=== PATIENT | male | born 1980 | race Caucasian/White ===

== ENCOUNTER 2024-05-12 07:09 | Emergency (ER) | payer OTHER, SELFPAY ==
[2024-05-12] VITALS (9 sets, daily range): BP systolic 108–151; BP diastolic 85–121; PULSE 51–64; RESP 11–21; TEMP 35.7; O2SAT 96–100
--- OUTSIDE RECORDS SUMMARY | 2024-05-12 07:12 | XMS_ITS | Data Portability ---
Author Organization [facility], [facility] Address [address] [place] [address] Care Team Providers Care Transport Rn Name Role Phone BOB HAMLIN Referring Provider Assessment Encounter Date Assessment Date Assessment LastModified by Organization Details LastModified Time 04/19/2023 04/19/2023 42 year old male with erectile dysfunction and benign prostatic hyperplasia with lower urinary tract symptoms Not available 04/19/2023 09:39:57 09/13/2023 09/13/2023 42 year old male with erectile dysfunction, hypogonadism, and benign prostatic hyperplasia with lower urinary tract symptoms Not available 09/13/2023 08:54:24 Plan of Treatment Reminders Order Date Submit Date Provider Last Modified By Organization Details Last Modified Time Details Appointments ESTABLISH ED 10 2024 07:30A M Zuhair Blackwood MD Not available Not available Not available Lab None recorded. Referral None recorded. Procedures None recorded. Surgeries None recorded. Imaging None recorded. Medication Orders Edex 20 mcg intracave rnosal kit [address], [address], 02/16/2024 14:03:32 testoster one 20.25 mg/1.25 gram per pump act.(1.62 %) transderm al gel 2023 024 [facility], [address] [place] [address], [address], 02/16/2024 13:19:48 Patient TargetsNo targets recorded. Patient Instructions Encounter Date Encounter Id Patient Instructions Last Modified By Organization Details Last Modified Time 04/19/2023 [id number] Erectile dysfunc tion: We had a long discussion regarding the etiologies of erectile dysfunction. In the vast majority of men, this is due to chronic insults of underlying vascular conditions such as diabetes, hypertension, and hyperlipidemia. In some men this may also be caused by iatrogenic causes such as pelvic surgery as in the case of radical prostatectomy. In some cases it may also be due to underlying neurologic insults. We discussed that there are some potentially reversible causes for erectile dysfunction such as hypogonadism and that it is recommended that we obtain two morning testosterone levels to assess if this may be the cause. We also discussed the impact of pharmaceuticals such as antihypertensive and glycemic agents on erectile function and that if possible, these should be modified to minimize impact on sexual function. We then discussed potential management strategies for erectile dysfunction. First we discussed vacuum assisted devices. These are a non-pharmacologic therapy which allows blood to be drawn into the penis using a pump and is then held in place with a ring at the base of the penis. Potential side effects can include bruising. Often this is insufficient for most men to maintain sufficient erections as mono therapy. We then discussed pharmacologic options. We discussed the use of phosphodiesterase inhibitors. We discussed this is often a first line therapy for men as it is discreet and can be utilized quickly on an as needed basis. We discussed that this is administered 30-60 minutes before intercourse on an empty stomach. We discussed side effects including flushing, vision changes (blue light vision), hypotension when combined with nitrates, and notably priapism. We discussed in the event of an erection lasting more than 4 hours this is an emergency and he must go to the nearest Emergency Department. We then discussed intracavernosal injection therapy. This involved injecting vasodilatory agents directly into the penis using a small needle. This may allow men to achieve erections when phosphodiesterase inhibitors are no longer effective. We discussed administration and potential side effects including bruising, hematoma formation, and risk of priapism. Finally we briefly discussed the role of surgery in the form of penile prosthesis placement. This may be an option for men who have failed to respond to other therapies. He has had limited response to oral therapies. We will check a morning testosterone to ensure he is not hypgonadic. If normal, we will try intracavernosal injections as a next step. Benign prostatic hyperplasia with lower urinary tract symptoms: Mild right now and he is not bothered enough to start medical therapy. We will monitor for now. Prostate cancer screening/Family history of prostate cancer His prostate specific antigen and exam are normal. [email or web address] Not available 04/19/2023 09:46:29 09/13/2023 [id number] Hypogonadism: His sexual function is somewhat better. We will check a repeat testosterone today to ensure he is above therapeutic range and adjust as needed. Erectile dysfunction: He will stick with tadalafil as needed for now but if he doesn't have adequate improvement once his testosterone is at goal he would like to try intracavernosal injections. Benign prostatic hyperplasia with lower urinary tract symptoms: Stable. Prostate cancer screening/Family history of prostate cancer His prostate specific antigen and exam are normal. Repeat in 1 year. Not available 09/13/2023 09:46:13 02/16/2024 [id number] 43 y/o male pres ents for a penile injection trial Educated on proper injection technique. Instructed to trial 20 mcg of Edex at home. Titrate up or down as tolerated and needed for desired response. Do not exceed 0.7 cc. Provided hand out on penile injections. Discussed risks of priapism and scar tissue development. Patient overdue for his testosterone gel refills. He will obtain labs next week. [email or web address] Not available 02/16/2024 13:19:24 Reason for Referral None Reported. Problems Name Problem SNOMED Code Status Onset Date Resolution Date Notes Provider Name and Address Organization Details Recorded Time Hypertensiv e disorder 20646308 Active 2023 Ricardo mcnulty [facility] 4 13:06:00 Gout 36977705 Active 2023 Ricardo mcnulty [facility] 13:06:04 Degeneratio n of lumbar interverteb ral disc 47643643 Active 2023 Ricardo mcnulty [facility] 4 13:06:15 Primary erectile dysfunction 904625438 Active 2023 Ricardo mcnulty [facility] 4 10:56:38 Lower urinary tract symptoms due to benign prostatic hypertrophy 9234439734200 1 Active 2023 Ricardo mcnulty, [facility] 4 10:56:49 Family history of malignant neoplasm of prostate 292273254 Active 2023 Ricardo mcnluty, [facility] 4 10:56:57 Problem Notes None recorded. Procedures Surgical History Date Name Laterality Status Provider Name and Address Organization Details Recorded Time 4 COMPLEX VISIT completed Zuhair Blackwood MD [address] [place] [address],[address], [id number] [place] [address] Urolog 09/13/2023 08:49:52 4 COMPLEX VISIT completed Zuhair Blackwood MD [address] [place] [address] [place] [address] Urolog 04/19/2023 09:37:26 Removal of sperm duct(s) completed Not Available Health Note 04/18/2023 09:28:55 Imaging Results None recorded. Procedure Notes None recorded. Medical Equipment None Reported. Allergies No known drug allergies Medications Name Sig Start Date Stop Date Status Note LastModified by Organization Details LastModified Time compounde d medicatio n Inject 0.1-0.7 cc intracav ernosal as directed for sexual activity 2023 active Not Available Not Available Not Avai lable Prescript ion - Prior Authoriza tion Request active Not Available Not Available Not Available venlafaxi ne ER 37.5 mg capsule,e xtended release 24 hr TAKE ONE CAPSULE BY MOUTH EVERY DAY WITH A MEAL active Not Available Not Available No t Available prednison e 10 mg tablet TAKE 3 TABS (30 MG) BY MOUTH ONCE DAILY WITH A MEAL FOR 2 DAYS, THEN 2 TABS (20 MG) ONCE DAILY FOR 2 DAYS, THEN 1 TABLET DAILY FOR 2 DAYS 04/18 completed Not Available Not Available Not Available Edex 20 mcg intracave rnosal kit Inject entire volume intracav ernosal as directed for sexual activity 2023 active Not Available Not Available Not Avai lable sulfasala zine 500 mg tablet TAKE ONE TABLET BY MOUTH TWICE A DAY active Not Available Not Available No t Available allopurin ol 100 mg tablet TAKE TWO TABLETS BY MOUTH ONCE DAILY active Not Available Not Available No t Available sulfameth oxazole 800 mg-trimet hoprim 160 mg tablet TAKE ONE TABLET BY MOUTH TWICE A DAY FOR 7 DAYS 04/18 completed Not Available Not Available Not Available sildenafi l 25 mg tablet TAKE 1 TABLET BY MOUTH ONCE DAILY 30 MINUTES - 4 HOURS PRIOR TO SEXUAL ACTIVITY NEEDED FOR ERECTILE DYSFUNCT ION.* 04/18 completed Not Available Not Available Not Available oxycodone -acetamin ophen 5 mg-325 mg tablet TAKE 1 TABLET BY MOUTH EVERY 4 HOURS IF NEEDED FOR PAIN. MAX ACETAMIN OPHEN DOSE 4000MG IN 24 HRS. 09/12 completed HN: Patient reports no longer taking Not Available Not Available Not Available venlafaxi ne 37.5 mg tablet 37.5mg 1/day 04/18 completed Not Available Not Available Not Available Viagra 100 mg tablet 100mg As needed before sex 09/12 completed HN: Patient reports no longer taking Not Available Not Available Not Available tadalafil 20 mg tablet TAKE ONE TABLET BY MOUTH EVERY DAY NEEDED - TAKE 1 HOUR PRIOR TO SEXUAL ACTIVITY active Not Available Not Available No t Available Cialis 10 mg tablet 10mg As needed Before sex active Not Available Not Available No t Available Colcrys 0.6 mg tablet TAKE 1 TABLET (0.6 MG) BY MOUTH ONE TIME IF NEEDED FOR GOUT PAIN. 09/12 completed HN: Patient reports no longer taking Not Available Not Available Not Available testoster one 20.25 mg/1.25 gram per pump act.(1.62 %) transderm al gel Apply 2 pumps every day by transder mal route. 2023 active Not Available Not Available Not Avai lable Vitals Date Recorded Body weight Body mass index (BMI) Body height Provider Name and Address Organization Details Last Updated DateTime 04/19/2023 976944.0077 18273 g 28.6 kg/m2 193.04 cm Not Available Health Note 04/19/2023 08:45:17 Date Recorded Body height Provider Name an d Address Organization Details Last Updated DateTime 09/13/2023 193.04 [facility] 09[facility]27 Date Recorded Body height Body mass index (BMI) Body weight Provider Name and Address Organization Details Last Updated DateTime 02/16/2024 193.04 cm 28.6 kg/m2 048182.21 g Anthony Nguyen [place] [facility] 02/16/2024 12:39:27 Social History Question Answer Notes LastModified by Organizat ion Details LastModified Time Tobacco Smoking Status Never Smoker Not Available Health Note 04/18/2023 09:28:56 What Is Your Level Of Alcohol Consumption? Moderate Information not available 04/19/2023 What Is Your Level Of Caffeine Consumption? Occasional [email or web address] Information not available 04/18/2023 How Much Tobacco Do You Chew? None [email or web address] Information not available 04/18/2023 Do You Or Have You Ever Used E-cigarettes Or Vape? Never Used Electronic Cigarettes [email or web address] Information not available 04/18/2023 What Was The Date Of Your Most Recent Tobacco Screening? 09/13/2023 Information not available 09/13/2023 Have You Ever Been Counseled For Unhealthy Alcohol Use? Yes Information not available 04/19/2023 What Is Your Relationship Status? [email or web address] Information not available 04/18/2023 Are You Sexually Active? Yes [email or web address] Information not available 04/18/2023 Do You Or Have You Ever Used Smokeless Tobacco? Never Used Smokeless Tobacco [email or web address] Information not available 04/18/2023 Do You Use Any Illicit Or Recreational Drugs? No [email or web address] Information not available 04/18/2023 Has Tobacco Cessation Counseling Been Provided? No Information not available 04/19/2023 Do You Or Have You Ever Used Any Other Forms Of Tobacco Or Nicotine? No Information not available 04/19/2023 How Many Days In The Past Year Have You Consumed 5 Or More Drinks? 6 [email or web address] Information no t available 04/18/2023 Sex: Unknown Functional Status None recorded. Mental Status None recorded. Family History Relationship Description Onset Age of this Age Resolved Age Notes LastModified by Organization Details LastModified Time Paternal Grandfather Family history of malignant neoplasm of prostate 45 [email or web address] Not available 2023 09:28:54 Medical History Condition Response Sexually Transmitted Infection N Diabetes N Bleeding Disorder N High Blood Pressure N Kidney Stones N Cancer N Lung Disease N Depression N High Cholesterol N GERD/Acid Reflux N Heart Disease N Immunizations Vaccine Type Date Status Note Provider Nam e and Address Organization Details Recorded Time SARS-COV-2 (COVID-19) vaccine, UNSPECIFIED 2 completed Ricardo Meath null, [facility] 04/19/2023 08:45:14 influenza, unspecified formulation 2 completed Ricardo Meath [facility] 04/19/2023 08:45:14 Influenza, split virus, quadrivalent, preservative 0 completed Ricardo Meath null, [facility] 04/19/2023 08:45:14 Influenza, MDCK, quadrivalent, preservative 1 completed Ricardo Meath null, [facility] 04/19/2023 08:45:14 Influenza, MDCK, quadrivalent, preservative 2 [facility] 08:45:14 COVID-19, mRNA, LNP-S, PF, 100 mcg/0.5mL dose or 50 mcg/0.25mL dose 2 [facility] 08:45:14 COVID-19, mRNA, LNP-S, PF, 100 mcg/0.5mL dose or 50 mcg/0.25mL dose 1 [facility] 08:45:14 COVID-19, mRNA, LNP-S, PF, 100 mcg/0.5mL dose or 50 mcg/0.25mL dose 1 completed Ricardo Meath null, [facility] 04/19/2023 08:45:14 COVID-19, mRNA, LNP-S, bivalent, PF, 50 mcg/0.5 mL or 25mcg/0.25 mL dose 2 [facility] 04/[facility]/2023 08:45:14 Novel Tojzcamme-[id number], all formulations 9 completed [facility] 04/19/2023 08:45:14 Influenza, split virus, trivalent, PF 0 completed Ricardo Meath null, [facility] 04/19/2023 08:45:14 Td (adult), 5 Lf tetanus toxoid, preservative free, adsorbed 6 completed Ricardo Meath null, [facility] 04/19/2023 08:45:14 Hep B, adult 7 completed Ricardo Meath null, [facility] 04/19/2023 08:45:14 Hep B, adult 7 completed Ricardo Meath null, [facility] 04/19/2023 08:45:14 Hep B, adult 7 completed Ricardo Meath null, [facility] 04/19/2023 08:45:14 Influenza, split virus, quadrivalent, PF 9 completed [facility] 04/[facility] 08:45:14 Influenza, split virus, quadrivalent, PF 7 completed Ricardo Meath null, [facility] 04/19/2023 08:45:14 Influenza, split virus, quadrivalent, PF 8 completed Ricardo Meath null, [facility] 04/19/2023 08:45:14 Past Encounters Encounter ID Performer Location Encounter Start Date Encounter Closed Date Diagnosis/Indication Diagnosis SNOMED-CT Code Diagnosis ICD10 Code Diagnosis Note [id number] Zuhair Blackwood MD [employer] [address] [place] [address] 04/19/2023 08:42:35 04/19/2023 09:58:09 Screening for alcohol abuse 264702350 Z13.39 Primary er ectile dysfunction 600215232 N52.9 Lower urin seven tract symptoms due to benign prostatic hypertrophy 6405833240 9101 N40.1 Family his tory of malignant neoplasm of prostate 260248632 Z80.42 [id number] Zuhair Blackwood MD [employer] [facility] [address] [place] [address] 09/13/2023 08:04:56 09/13/2023 11:34:00 Primary erectile dysfunction 095432999 N52.9 Lower urin seven tract symptoms due to benign prostatic hypertrophy 7461838548 9101 N40.1 Family his tory of malignant neoplasm of prostate 579074431 Z80.42 Male hypogonadism 870186 06 E29.1 [id number] BRAXTON CHANDLER [facility] [address] [place] [address] 02/16/2024 12:38:34 02/16/2024 13:27:46 Primary erectile dysfunction 568593437 N52.9 Hypogonadism 53160220 E2 9.1 Health Concerns Section Related Observation LastModified by Organization Detai ls LastModified Time None Recorded Concern Status LastModified by Organization Details LastModified Time None Recorded Advance Directives Directive None Recorded Payers Encounter Date Sequence Insurance Name Policy Number Policy Colby Covered Member ID Colby Member ID Guarantor Name 04/19/2023 1 [employer] - OPEN ACCESS CHOICE (HMO) Singh E Dani [id number] Singh E Dani 09/13/2023 1 *SELF PAY* Wy att E Dani 02/16/2024 1 [facility] [id number] Singh E Dani [id number] Singh E Dani Notes Date Note Type Note Provider Name and Address Organization Details Recorded Time 4 text/html This is a 42 year old male who is here for the evaluation and management of benign prostatic hyperplasia with lower urinary tract symptoms and erectile dysfunction. He has noticed worsening urinary hesitancy in recent years.He denies gross hematuria. He has tried tadalafil 20 mg as needed and sildenafil 100 mg as needed without much effect.He does not notice many morning erections. Two of his uncles and his grandfather had prostate cancer.His most recent prostate specific antigen was 0.65 ng/mL (01/18/2023). Zuhair Blackwood MD [address], [place], [address], [facility] 04/19/2023 09:47:04 4 text/html This is a 42 year old male who is here for the ongoing management of benign prostatic hyperplasia with lower urinary tract symptoms, erectile dysfunction, and hypogonadism. His most recent serum testosterone was 285 ng/dL (04/19/2023).He is currently managing his symptoms with androgel 1.62% two pumps daily. International Prostate Symptom Score: 6He is not currently on medical therapy. International Index Of Erectile Function Score (IIEF): 8He has noticed improvement in libido and strength of erections since starting androgel.He is utilizing tadalafil 20 mg as needed with better results with replacement therapy. Two of his uncles and his grandfather had prostate cancer.His most recent prostate specific antigen was 0.65 ng/mL (01/18/2023). Zuhair Blackwood MD [address] [place] [address],[address] [place] [address], [address], [facility] 09/13/2023 09:46:56 4 text/html Erectile DysfunctionReported bypatient.Notes:43 y/o male presents for an evaluation of erectile dysfunction (ED). He reports difficulty with erections for the past 10+ years. No preceding event he can associate to the development of ED. Gradual decline in erectile function since initial onset. He has tried Sildenafil and Tadalafil which have been ineffective. He has not tried any other treatments for ED. He is able to achieve an ehs of 2 with inadequate maintenance. No pain or curvature to penis with erections. Good libido and energy. Patient is interested in penile injections. BRAXTON CHANDLER [address] [place] [address],[address], [place], [address], [facility] 02/16/2024 13:20:24
--- OUTSIDE RECORDS SUMMARY | 2024-05-12 07:12 | XMS_ITS | Continuity of Care Document ---
Author Organization [facility] Address [address] [place] [address] Phone Care Team Providers Care Perfect Binder Setter Name Role Phone Gerson Damon Unavailable Unavailable Allergies, Adverse Reactions, Alerts Substance Reaction Status Criticality No Known Allergies Active No Inform ation Medications Medication Instructions Dosage Effective Dates (start - stop) Status Comments No Drug Therapy Prescribed Procedures Procedure Date Office/Outpatient Visit,Est, Mod 2021 Office/Outpatient Visit,Est, Mod 2020 Office/Outpatient Visit,Est, Mod 2019 Office/Outpatient Visit,New, Mod 2018 Advance Directives Directive Yes / No Effective Date File Name No Information Encounters Encounter Description Practice Location Reason(s) For Visit Diagnoses Date Provider Providers Copied on Encounter Office/Outpati ent Visit,Est, Mod [facility], [address], [place], [place], [id number], [place] tel:[phone] [facility] Spinal stenosis, cervical region Magdy Nieto. [facility], [address] [facility] [address], [place], [place], [id number], [place]. tel:[phone] Referring Provider: Andrés Goldberg [facility] Amarilis Mcnamara, [facility] [address], [place], [address]. tel:[phone] Office/Outpati ent Visit,Est, Mod [facility], [address], [place], [place], [id number], [place] tel:[phone] [facility] Spinal stenosis, cervical region Magdy Nieto. [facility], [address], [place], [place], [id number], [place]. tel:[phone] Referring Provider: [facility] [address], [place], [address]. tel:[phone] Office/Outpati ent Visit,Est, Mod [facility], [address], [facility] [place], [id number], [place] tel:[phone] [facility] Spinal stenosis, cervical region Magdy Nieto. [facility], [address], [facility], [place], [id number], [place]. tel:[phone] Referring Provider: Obie Tripathi [facility] [address], [place], [address]. tel:[phone] Office/Outpati ent Visit,New, Mod [facility], [address], [place], [place], [id number], [place] tel:[phone] [facility] Spinal stenosis, cervical region Magdy Nieto. [facility], [address], [place], [place], [id number], [place]. tel:[phone] Referring Provider: Obie Tripathi [facility] [address], [place], [address]. tel:[phone] Family History Family Member Type Diagnosis Age At Onset No Information Payers Payer name Insurance type Covered alliance party ID Vaibhav hutchison(s) [facility] [id number] Social History Type Description Quantity Date Captured Comments Alcohol Use Details Unknown Caffeine Use Details Unknown Tobacco Use Status Current non-smoker Smoking Status Never smoker Non-Smoking Tobacco Use Details : No Details Available : No Details Available Sex Male Vital Signs Date / Time: Height Weight BMI Pulse Rate Blood Pressure Temperature Respiratory Rate Body Surface Area Head Circumference Head Circ. Percentile Wt./Surinder. Percentile BMI percentile Pulse Ox Inhaled Ox 8:48 AM 76.00 in 104.780 kg (231.00 lbs) 28.1 2 kg/m eter (2) Chief Complaint And Reason For Visit No Information Reason For Referral Reason For Referral No Information History Of Present Illness Encounter Date Complaint History Of Prese nt Illness No Information Functional Status Date Functional Assessmen t No Information Medications Administered Medication Instructions Dosage Effective Dates (start - stop) Status Comments No Drug Therapy Prescribed Instructions Date Instruction Additional Infor mation No Information Assessments Type Assessment Date assessment Spinal stenosis, cervical region Patient Care Teams Name Effective Dates (start - stop) Status Members No Information
--- OUTSIDE RECORDS SUMMARY | 2024-05-12 07:12 | XMS_ITS | Clinical Summary ---
Author Organization [facility] Address [address] [place] [id number] Care Team Providers Care Chief Lifestyle Officer Name Role Phone Obie Tripathi MD Unavailable [phone] Kelsi Atwood MD Primary Care Provide r Allergies No known active allergies Medications multivitamin (MVI) tablet Take 1 Tablet by mouth once daily. 0 07/14/19 22 Active COLCRYS, colchicine, 0.6 mg tabletIndicati ons:Idiopathic gout, unspecified chronicity, unspecified site Take 1 Tablet (0.6 mg) by mouth one time if needed for Gout Pain. 30 Tablet 08/10/19 24 Active testosterone (ANDROGEL) 20.25 mg/1.25 gram (1.62 %) glpm transdermal gel Apply 2 pumps on dry, clean, hairless skin once daily in the morning. Active sildenafil citrate (Viagra) 100 mg tablet Take 100 mg by mouth once daily if needed for Erectile Dysfunction. Active oxyCODONE-acet aminophen (Percocet) 5-325 mg per tabletIndicati ons:Patellar tendinitis of left knee Take 1 Tablet by mouth every 4 hours if needed for Pain. Max acetaminophen dose: 4000mg in 24 hrs. 12 Tablet 09/01/19 24 Active allopurinoL (ZYLOPRIM) 100 mg tabletIndicati ons:Gout, unspecified cause, unspecified chronicity, unspecified site TAKE TWO TABLETS BY MOUTH ONCE DAILY 60 Tablet 2 03/05/20 24 Active sulfaSALAzine (AZULFIDINE) 500 mg tabletIndicati ons:Inflammato ry arthritis TAKE ONE TABLET BY MOUTH TWICE A DAY 60 Tablet 5 05/04/19 25 Active sulfaSALAzine (AZULFIDINE) 500 mg tabletIndicati ons:Inflammato ry arthritis TAKE ONE TABLET BY MOUTH TWICE A DAY 60 Tablet 4 08/10/19 24 2024 Discontinued Active Problems Problem Noted Date Diagnosed Date Family history of prostate cancer 04/27/2022 Gout 03/09/2018 Bronchitis 03/09/2018 Erectile dysfunction 04/23/2015 Overweight (BMI 25.0-29.9) 04/23/2015 Mild Multilevel Lumbar DDD 01/31/2012 HTN (hypertension) 12/10/2009 Encounters Date Type Department Care Team Description 05/03/2024 Refill [facility] [address] [facility] [address] [place] [address] Obie Tripathi MD Refill Request (Sulfasalazine) 03/05/2024 Refill [facility] [address] [place] [address] Obie Tripathi MD Refill Request (Allopurinol) from Last 3 Months Immunizations Immunization Administration Dates Next Due AMB Influenza, IIV4 PF (=>6 mos Flulaval,Fluzone Fluarix)(Flu Clinic Only) 02/13/2018 COVID-19 vaccine (Moderna 100mcg/0.5mL) PF, MDV 10/05/2021,03/20/2021,06/05/2020,2020 Hepatitis B (Adult) 12/29/2016,07/27/2016,2016 Influenza A (H1N1), Inactivated 01/31/2009 Influenza A (H1N1), Inactiva [place] (Age >=3 Years) 01/31/2009 Influenza Virus, Unspecified 10/05/2021,11/28/19 21 Influenza, IIV3 (Age 6-35 mos) 01/30/2010 Influenza, IIV3 (Age >=3 years) 01/30/2010 Influenza, IIV4 01/31/2017,01/31/2009 Influenza, IIV4 (=>6mos) MDV 11/23/2019 Influenza, Injectable, Mdck, Quadrivalent, W/preservative 01/05/2022,11/27/2020 Td (Age >=7 Years) 03/26/2004 Td, Preservative Free (age > = 7 Years) 04/21/2015,04/21/2015 Family History Medical History Relation Name Comments Heart attack Brother Drug related Hypertension Father Liver cancer Father Liver transplan t d/t cancer and cirrohsis/Brain anuerysm, did have coil procedure Stroke Father secondary to co il procedure for aneurysm Osteoporosis Maternal Grandmother Osteoporosis Maternal Uncle Good Health Mother Cancer-prostate Paternal Grandfather Diabetes Paternal Grandmother Heart Disease Paternal Grandmother Hypertension Paternal Grandmother Cancer Paternal Uncle Cancer-prostate Paternal Uncle Heart Disease Paternal Uncle Good Health Sister 2 Relation Name Status Comments Brother Father Alive Maternal Grandmother Maternal Uncle Mother Alive Paternal Grandfather Paternal Grandmother Paternal Uncle Sister 1 Alive Sister 2 Social History Tobacco Use Types Packs/Day Years Used Date Smoking Tobacco: Never Passive Smoke Exposure: Never Smokeless Tobacco: Never Tobacco Cessation:Counseling Given: Yes Comments:never Alcohol Use Standard Drinks/Week Comments No 0 (1 standard drink = 0.6 oz pur e alcohol) PHQ-2 Answer Date Recorded PHQ-2 TOTAL SCORE 0 08/23/2023 Social Connections Answer Date Recorded Do you often feel lonely or isolated from those around you? 0 04/28/2023 Financial Resource Strain Answer Date R ecorded Difficulty of Paying Living Expenses 3 04/28/2023 Difficulty of Paying Living Expenses Not on file 04/28/2023 Food Insecurity Answer Date Recorded Do you worry your food will run out before you are able to buy more? 1 04/28/2023 Transportation Needs Answer Date Record ed Does lack of transportation keep you from medica l appointments? 1 04/28/2023 Does lack of transportation keep you from work, meetings or getting things that you need? 1 04/28/2023 Housing Stability Answer Date Recorded What is your housing situation today? 1 04/28/2023 Utilities Answer Date Recorded Do you have trouble paying f or utilities (for example, heat, electricity, water, phone)? 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 Not on file Not on file Obstetrics History Last Filed Vital Signs Vital Sign Reading Time Taken Comments Blood Pressure 124/82 12/12/2023 10:44 AM CDT Pulse 60 12/12/2023 10:44 AM CDT Temperature 36.8 C (98.2 F) 09/01/2023 7:42 AM CDT Respiratory Rate 12 08/10/2023 7:45 AM CDT Oxygen Saturation 99% 09/01/2023 7:42 AM CDT Inhaled Oxygen Concentration - - Weight 108 kg (238 lb) 12/12/2023 10:44 AM CDT Height 190.5 cm (6' 3) 12/12/2023 10:44 AM CDT Body Mass Index 29.75 12/12/2023 10:44 AM CDT Plan of Treatment Upcoming Encounters Date Type Department Care Team (Late st Contact Info) Description 06/12/2024 9:00 AM CDT Office Visit [facility] [address] [facility] [address] [place], [place] [id number] Obie Tripathi MD [address] [facility] [address] [place] [address] Health Maintenance Due Date Last Done Comments Tdap 1989 HIV for age 15-65 1993 Hepatitis C screening for age 18-79 1996 Colonoscopy through age 75 11/03/2023 (IA) Influenza for age 9-49 11/06/2023 11/0 03/2021, 10/05/2021, 11/27/2020, Additional history exists COVID-19 vaccine series ( season) 2023 01/06/2022, 10/05/2021, 03/20/2021, Additional history exists Depression screening for age 12+ 08/24/2024 08/25/2023, 08/24/2023, 08/23/2023, Additional history exists BMI (ht and wt on same day) for age 18+ 12/11/2024 12/12/2023, 08/23/2023, 09/10/2022, Additional history exists Lipids for age 45-75 04/03/2025 04/03/2020, 03/09/2018, 05/02/2015, Additional history exists Tetanus booster 04/21/2025 04/21/2015, 04/07, 03/26/2004 Pneumococcal series for age 6-49 Aged Out No longer eligible based on patient's age to complete this topic Procedures Procedure Name Priority Date/Time Associated Diagnosis Comments LIPID PANEL W REFLEX MEASURED LDL Routine 04/03/2020 11:21 AM WELD FITTER Dyslipidemia from Last 3 Months or Most Recently Relevant to Health Maintenance Results * (ABNORMAL) LIPID PANEL W REFLEX MEASURED LDL (04/03/2020 11:21 AM WELD FITTER) CHOLESTEROL,TOTAL 179 100 - 199 mg/dL 04/03/2020 5:18 PM WELD FITTER [facility] [email or web address] [facility] TRIGLYCERIDES 132 <150 mg/dL 04/03/2020 5:18 PM WELD FITTER [facility] HDL CHOLESTEROL 37(L) >40 mg/dL 5:18 PM WELD FITTER [facility] NON-HDL CHOLESTEROL 142 <145 mg/dl 04/03/2020 5:18 PM WELD FITTER [facility] CHOL/HDL RATIO 4.84(H) <4.50 04/03/2020 5:18 PM WELD FITTER [facility] LDL CHOLESTEROL 116 <=130 mg/dL 04/03/2020 5:18 PM WELD FITTER [facility] PROVIDER ORDERED STATUS RANDOM 04/03/2020 5:18 PM WELD FITTER [facility] Blood BLOOD SPECIMEN / Unknown Venipuncture / Unknown 04/03/2020 11:21 AM WELD FITTER 04/03/2020 11:22 AM WELD FITTER us Kelsi Atwood MD CHEMISTRY Final Result [facility] [address] [place] [address], [place] from Last 3 Months or Most Recently Relevant to Health Maintenance Insurance [facility] Care Teams Chief Lifestyle Officer Relationship Specialty Start Date End Date Kelsi Atwood MD [address] [place] [address] PCP - General Family Practice 03/09/18 Obie Tripathi MD [address] [facility] [address] [place] [address] Rheumatology Rheumatology 07/26/17
--- NOTE | 2024-05-12 07:22 | ED.GENADULT ---
HPI - General Adult General Time Seen by Provider: 07:22 <Edouard Ramires MD - Last Filed: 05/12/24 07:49> Date Seen: 05/12/24 <Edouard Ramires MD - Last Filed: 05/12/24 07:49> Chief complaint: Flank Pain <Edouard Ramires MD - Last Filed: 05/12/24 07:49> Stated complaint: severe back pain, stomach ache <Edouard Ramires MD - Last Filed: 05/12/24 07:49> Time Seen by Provider: 05/12/24 07:22 <Edouard Ramires MD - Last Filed: 05/12/24 07:49> Source: patient <Edouard Ramires MD - Last Filed: 05/12/24 07:49> Mode of arrival: ambulatory <Edouard Ramires MD - Last Filed: 05/12/24 07:49> Limitations: no limitations <Edouard Ramires MD - Last Filed: 05/12/24 07:49> History of Present Illness HPI narrative: 43-year-old patient comes in with abdominal. Patient notes a mild back ache all week, today right lower quadrant pain going to the right back along with some vomiting. Loose stool this morning. No urinary symptoms. Prior appendectomy. <Edouard Ramires MD - Last Filed: 05/12/24 07:49> Related Data Home medications: Home Medications ?Medication ?Instructions ?Recorded ?Confirmed allopurinol 100 mg tablet 200 mg PO DAILY 05/12/24 05/12/24 sulfasalazine 500 mg tablet 500 mg PO BID 05/12/24 05/12/24 Previous Rx's ?Medication ?Instructions ?Recorded ketorolac 10 mg tablet 10 mg PO Q6H PRN pain #20 tabs 05/12/24 oxycodone 5 mg tablet 5 mg PO Q6H PRN pain #12 tabs 05/12/24 tamsulosin 0.4 mg capsule (Flomax) 0.4 mg PO DAILY #10 caps 05/12/24 <Edouard Ramires MD - Last Filed: 05/12/24 07:49> Allergies/adverse reactions: Allergies Allergy/AdvReac Type Severity Reaction Status Date / Time No Known Drug Allergies Allergy Verified 05/12/24 07:16 <Edouard Ramires MD - Last Filed: 05/12/24 07:49> Exam Narrative: Exam Narrative: General: Well-developed and well-nourished, no acute distress Head: Atraumatic and normocephalic Eyes: Pupils are equal reactive, extraocular motions intact, conjunctiva clear ENT: External nose and ears are normal, posterior pharynx without erythema or exudate Neck: No midline cervical tenderness, full spontaneous range of motion the neck, trachea midline, no adenopathy Heart: Regular rate and rhythm no murmurs or thrills Lungs: Clear to auscultation bilaterally without wheezes or crackles Abdomen: Soft, nontender, nondistended with active bowel sounds Musculoskeletal: No tenderness, deformity, or edema Neurologic: Awake, alert, and oriented x3, no gross focal neurologic deficits, cranial nerves intact as tested Psych: Mood and affect are appropriate Skin: Pale <Edouard Ramires MD - Last Filed: 05/12/24 07:49> Const: Vital Signs, click to edit/add: Vital Signs - 24 hr 05/12/24 07:13 05/12/24 07:38 05/12/24 08:03 Temperature 96.3 F L Pulse Rate 52 L Pulse Rate [Pulse Oximeter] 64 Respiratory Rate 16 Blood Pressure 143/89 H Blood Pressure [Le ft Upper Arm] 151/85 H 108/91 H Blood Pressure [Ri ght Upper Arm] 133/121 H Pulse Oximetry 99 100 Oxygen Delivery Me thod Room Air 05/12/24 08:30 05/12/24 09:02 05/12/24 09:03 Temperature Pulse Rate 54 L 51 L 52 L Pulse Rate [Pulse Oximeter] Respiratory Rate 12 17 21 Blood Pressure 141/85 H Blood Pressure [Le ft Upper Arm] Blood Pressure [Ri ght Upper Arm] Pulse Oximetry 97 96 96 Oxygen Delivery Me thod 05/12/24 10:02 05/12/24 10:30 05/12/24 12:02 Temperature Pulse Rate 55 L Pulse Rate [Pulse Oximeter] Respiratory Rate 11 L 20 Blood Pressure 145/87 H 139/103 H Blood Pressure [Le ft Upper Arm] Blood Pressure [Ri ght Upper Arm] Pulse Oximetry 96 Oxygen Delivery Me thod <Edouard Ramires MD - Last Filed: 05/12/24 07:49> Vital Signs, click to edit/add: Vital Signs - 24 hr 05/12/24 07:13 05/12/24 07:38 05/12/24 08:03 Temperature 96.3 F L Pulse Rate 52 L Pulse Rate [Pulse Oximeter] 64 Respiratory Rate 16 Blood Pressure 143/89 H Blood Pressure [Le ft Upper Arm] 151/85 H 108/91 H Blood Pressure [Ri ght Upper Arm] 133/121 H Pulse Oximetry 99 100 Oxygen Delivery Me thod Room Air 05/12/24 08:30 05/12/24 09:02 05/12/24 09:03 Temperature Pulse Rate 54 L 51 L 52 L Pulse Rate [Pulse Oximeter] Respiratory Rate 12 17 21 Blood Pressure 141/85 H Blood Pressure [Le ft Upper Arm] Blood Pressure [Ri ght Upper Arm] Pulse Oximetry 97 96 96 Oxygen Delivery Me thod 05/12/24 10:02 05/12/24 10:30 05/12/24 12:02 Temperature Pulse Rate 55 L Pulse Rate [Pulse Oximeter] Respiratory Rate 11 L 20 Blood Pressure 145/87 H 139/103 H Blood Pressure [Le ft Upper Arm] Blood Pressure [Ri ght Upper Arm] Pulse Oximetry 96 Oxygen Delivery Me thod <Dave Rankin DO - Last Filed: 05/12/24 16:22> Course Course ED Course: Patient seen examined, presents with right abdominal pain right back pain this morning along with vomiting. On exam here, patient's vital is stable, mild right lower quadrant tenderness. Prior appendectomy, consider kidney stone, mesenteric adenitis, colitis. Toradol and Zofran ordered for pain, labs urinalysis ordered. Note the patient has a history of gout and is on allopurinol. <Edouard Ramires MD - Last Filed: 05/12/24 07:49> Reevaluation(s) Time of Reevaluation #1: 07:48 <Edouard Ramires MD - Last Filed: 05/12/24 07:49> Reevaluation #1: Patient recheck, he is complaining of some lightheadedness that he says started on arrival in the emergency department. Also says he feels little short of breath. EKG is performed which shows an incomplete right bundle-branch block but no acute changes otherwise. Troponin as labs and will continue to monitor. EKG independently interpreted by me performed at 7:45 a.m. demonstrates sinus rhythm rate 57, incomplete right bundle-branch block, no acute ST elevations or depressions, normal intervals. No prior for comparison. Anticipate sign out to oncoming provider. <Edouard Ramires MD - Last Filed: 05/12/24 07:49> Vital Signs Vital signs: Initial Vital Signs Temperature 96.3 F L 05/12/24 07:13 Temperature Source Temporal Artery Scan 05/12/24 07:13 Pulse Rate 64 05/12/24 07:13 Respiratory Rate 16 05/12/24 07:13 Blood Pressure 151/85 H 05/12/24 07:13 Blood Pressure Mean 107 H 05/12/24 07:13 Blood Pressure Position Sitting 05/12/24 07:13 Pulse Oximetry 99 05/12/24 07:13 Oxygen Delivery Method Room Air 05/12/24 07:13 Vital Signs Temperature 96.3 F L 05/12/24 07:13 Pulse Rate 64 05/12/24 07:13 Respiratory Rate 16 05/12/24 07:13 Blood Pressure 151/85 H 05/12/24 07:13 Pulse Oximetry 99 05/12/24 07:13 Oxygen Delivery Method Room Air 05/12/24 07:13 Temperature 96.3 F L 05/12/24 07:13 Pulse Rate 55 L 05/12/24 10:30 Respiratory Rate 20 05/12/24 10:30 Blood Pressure 139/103 H 05/12/24 12:02 Pulse Oximetry 96 05/12/24 10:30 Oxygen Delivery Method Room Air 05/12/24 07:13 <Edouard Ramires MD - Last Filed: 05/12/24 07:49> Initial Vital Signs Temperature 96.3 F L 05/12/24 07:13 Temperature Source Temporal Artery Scan 05/12/24 07:13 Pulse Rate 64 05/12/24 07:13 Respiratory Rate 16 05/12/24 07:13 Blood Pressure 151/85 H 05/12/24 07:13 Blood Pressure Mean 107 H 05/12/24 07:13 Blood Pressure Position Sitting 05/12/24 07:13 Pulse Oximetry 99 05/12/24 07:13 Oxygen Delivery Method Room Air 05/12/24 07:13 Vital Signs Temperature 96.3 F L 05/12/24 07:13 Pulse Rate 64 05/12/24 07:13 Respiratory Rate 16 05/12/24 07:13 Blood Pressure 151/85 H 05/12/24 07:13 Pulse Oximetry 99 05/12/24 07:13 Oxygen Delivery Method Room Air 05/12/24 07:13 Temperature 96.3 F L 05/12/24 07:13 Pulse Rate 55 L 05/12/24 10:30 Respiratory Rate 20 05/12/24 10:30 Blood Pressure 139/103 H 05/12/24 12:02 Pulse Oximetry 96 05/12/24 10:30 Oxygen Delivery Method Room Air 05/12/24 07:13 <Dave Rankin DO - Last Filed: 05/12/24 16:22> Medications Administered Medications: Discontinued Medications Generic Name Dose Route Start Last Admin Trade Name Freq PRN Reason Stop Dose Admin Sodium Chloride 1,000 mls @ 1,000 mls/hr 05/12/24 08:00 05/12/24 09:45 0.9 % Sodium Chloride 1000 Ml IV 05/12/24 08:59 Infused .Q1H LENI Infusion Sodium Chloride 1,000 mls @ 1,000 mls/hr 05/12/24 10:15 05/12/24 11:43 0.9 % Sodium Chloride 1000 Ml IV 05/12/24 11:14 Infused .Q1H LENI Infusion Ketorolac Tromethamine 15 mg 05/12/24 07:29 05/12/24 07:36 Ketorolac 15 Mg/Ml Inj IVP 05/12/24 07:30 15 mg ONCE ONE Administration Morphine Sulfate 4 mg 05/12/24 08:43 05/12/24 08:47 Morphine 4 Mg/Ml Inj IVP 05/12/24 08:44 4 mg ONCE ONE Administration Morphine Sulfate 4 mg 05/12/24 10:05 05/12/24 10:17 Morphine 4 Mg/Ml Inj IVP 05/12/24 10:06 4 mg ONCE ONE Administration Ondansetron HCl 4 mg 05/12/24 07:29 05/12/24 07:35 Ondansetron 2 Mg/Ml Inj IVP 05/12/24 07:30 4 mg ONCE ONE Administration <Edouard Ramires MD - Last Filed: 05/12/24 07:49> Discontinued Medications Generic Name Dose Route Start Last Admin Trade Name Dorota PRN Reason Stop Dose Admin Sodium Chloride 1,000 mls @ 1,000 mls/hr 05/12/24 08:00 05/12/24 09:45 0.9 % Sodium Chloride 1000 Ml IV 05/12/24 08:59 Infused .Q1H LENI Infusion Sodium Chloride 1,000 mls @ 1,000 mls/hr 05/12/24 10:15 05/12/24 11:43 0.9 % Sodium Chloride 1000 Ml IV 05/12/24 11:14 Infused .Q1H LENI Infusion Ketorolac Tromethamine 15 mg 05/12/24 07:29 05/12/24 07:36 Ketorolac 15 Mg/Ml Inj IVP 05/12/24 07:30 15 mg ONCE ONE Administration Morphine Sulfate 4 mg 05/12/24 08:43 05/12/24 08:47 Morphine 4 Mg/Ml Inj IVP 05/12/24 08:44 4 mg ONCE ONE Administration Morphine Sulfate 4 mg 05/12/24 10:05 05/12/24 10:17 Morphine 4 Mg/Ml Inj IVP 05/12/24 10:06 4 mg ONCE ONE Administration Ondansetron HCl 4 mg 05/12/24 07:29 05/12/24 07:35 Ondansetron 2 Mg/Ml Inj IVP 05/12/24 07:30 4 mg ONCE ONE Administration <Dave Rankin, - Last Filed: 05/12/24 16:22> Medical Decision Making MDM Narrative Medical decision making narrative: Patient was signed out to me pending CT scan results. CT returned showing a 5 mm stone in the right distal ureter consistent with his pain. There is dilation of the urinary tract. Also has diffuse hepatic steatosis and lower lung nodules. Does appear to be constipated. I informed him of these results. 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 I informed him of these results and he states he previous as appendix removed and has never been told he has a malrotated bowel. Seems odd that this when be mentioned after surgery so there is a possibility that this reading may have been incorrect. Either way is nothing needs him to be hospitalized for any he can follow-up outpatient. Did give a more morphine for his pain. Urinalysis shows no signs of UTI. His pain is improved and he would rather go home trying managed pain rather than be transferred. <Dave Rankin, DO - Last Filed: 05/12/24 16:22> Lab Data Labs: Lab Results 05/12/24 05/12/24 05/12/24 Range/Units 07:30 07:38 Unknown WBC 7.31 (4.50-11.00) K/uL RBC 4.34 (4.30-5.90) m/uL Hgb 15.0 (13.5-17.5) gm/dL Hct 43.3 (37.0-53.0) % MCV 100 (80-100) fL MCH 35 H (26-34) pg MCHC 35 (32-36) gm/dL RDW Coeff of Jonathan 11.9 (11.5-15.5) % Plt Count 292 (140-440) K/uL Neut % (Auto) 55.0 (42.0-72.0) % Lymph % (Auto) 29.3 (20-44) % [place] % (Auto) 13.0 H (0.0-11.0) % Eos % (Auto) 2.1 (0.0-7.0) % Baso % (Auto) 0.3 (0.0-3.0) % Neut # (Auto) 4.03 (1.7-7.0) K/uL Lymph # (Auto) 2.14 (0.90-2.90) K/uL [place] # (Auto) 1.00 H (0.00-0.90) K/UL Eos # (Auto) 0.15 (0.00-0.50) K/uL Baso # (Auto) 0.02 (0.00-0.30) K/uL Abs Immat Gran (auto) 0.02 (0.00-0.30) K/uL Imm/Tot Granulo (auto) 0.3 % Sodium 139 (135-149) mmol/L Potassium 4.0 (3.6-5.1) mmol/L Chloride 103 (96-114) mmol/L Carbon Dioxide 24 (20-32) mmol/L Anion Gap 12 (7-15) mEq/L BUN 14 (5-24) mg/dL Creatinine 0.8 (0.5-1.5) mg/dL Estimated Creat Clear 139.37 Estimated GFR 111 ml/min Glucose 137 H (60-115) mg/dL Calcium 9.1 (8.4-10.6) mg/dL Troponin I < 0.01 L (0.01-0.04) ng/mL Urine Color Yellow (Yellow) Urine Appearance Clear (Clear) Urine pH 7.0 (5.0-8.5) Ur Specific [place] 1.020 (1.000-1.030) Urine Protein Negative (Negative) Urine Glucose (UA) Negative (Negative) Urine Ketones Negative (Negative) Urine Blood Negative (Negative) Urine Nitrite Negative (Negative) Urine Bilirubin Negative (Negative) Urine Urobilinogen 0.2 (0.2-1.0) Ur Leukocyte Esterase Negative (Negative) Urine RBC 0-2 (0-2) Urine WBC 0-2 (0-5) Ur Squamous Epith Cells None (None-Few) Urine Bacteria None (None) Lab Acknowledgement Test Added <Edouard Ramires MD - Last Filed: 05/12/24 07:49> Lab Results 05/12/24 05/12/24 05/12/24 Range/Units 07:30 07:38 Unknown WBC 7.31 (4.50-11.00) K/uL RBC 4.34 (4.30-5.90) m/uL Hgb 15.0 (13.5-17.5) gm/dL Hct 43.3 (37.0-53.0) % MCV 100 (80-100) fL MCH 35 H (26-34) pg MCHC 35 (32-36) gm/dL RDW Coeff of Jonathan 11.9 (11.5-15.5) % Plt Count 292 (140-440) K/uL Neut % (Auto) 55.0 (42.0-72.0) % Lymph % (Auto) 29.3 (20-44) % [place] % (Auto) 13.0 H (0.0-11.0) % Eos % (Auto) 2.1 (0.0-7.0) % Baso % (Auto) 0.3 (0.0-3.0) % Neut # (Auto) 4.03 (1.7-7.0) K/uL Lymph # (Auto) 2.14 (0.90-2.90) K/uL [place] # (Auto) 1.00 H (0.00-0.90) K/UL Eos # (Auto) 0.15 (0.00-0.50) K/uL Baso # (Auto) 0.02 (0.00-0.30) K/uL Abs Immat Gran (auto) 0.02 (0.00-0.30) K/uL Imm/Tot Granulo (auto) 0.3 % Sodium 139 (135-149) mmol/L Potassium 4.0 (3.6-5.1) mmol/L Chloride 103 (96-114) mmol/L Carbon Dioxide 24 (20-32) mmol/L Anion Gap 12 (7-15) mEq/L BUN 14 (5-24) mg/dL Creatinine 0.8 (0.5-1.5) mg/dL Estimated Creat Clear 139.37 Estimated GFR 111 ml/min Glucose 137 H (60-115) mg/dL Calcium 9.1 (8.4-10.6) mg/dL Troponin I < 0.01 L (0.01-0.04) ng/mL Urine Color Yellow (Yellow) Urine Appearance Clear (Clear) Urine pH 7.0 (5.0-8.5) Ur Specific [place] 1.020 (1.000-1.030) Urine Protein Negative (Negative) Urine Glucose (UA) Negative (Negative) Urine Ketones Negative (Negative) Urine Blood Negative (Negative) Urine Nitrite Negative (Negative) Urine Bilirubin Negative (Negative) Urine Urobilinogen 0.2 (0.2-1.0) Ur Leukocyte Esterase Negative (Negative) Urine RBC 0-2 (0-2) Urine WBC 0-2 (0-5) Ur Squamous Epith Cells None (None-Few) Urine Bacteria None (None) Lab Acknowledgement Test Added <Dave Rankin DO - Last Filed: 05/12/24 16:22> Imaging Data CT scan abdomen and pelvis: Attestation: I have reviewed the pertinent imaging results. <Dave Rankin DO - Last Filed: 05/12/24 16:22> Radiologist's impression: 1. There is a 5 millimeter calculus in the right distal ureter with associated urinary tract dilatation. 2. Diffuse hepatic steatosis. 3. 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 4. There is a 6 x 7 millimeter right lower lobe lung nodule. PER THE [employer] CRITERIA, RECOMMEND A FOLLOW-UP CHEST CT IN 6-12 MONTHS. 5. Findings of slow transit constipation. Please note that all CT scans at this facility use dose modulation, iterative reconstruction, and/or weight-based dosing when appropriate to reduce radiation dose to as low as reasonably achievable. Dictated by Ave Bishop MD @ 05/12/2024 8:22:26 AM <Dave Rankin DO - Last Filed: 05/12/24 16:22> ECG Data Attestation: I personally reviewed and interpreted this ECG as follows: <Dave Rankin DO - Last Filed: 05/12/24 16:22> Prior ECG tracings: not available for review <Dave Rankin DO - Last Filed: 05/12/24 16:22> Interpretation: EKG done prior to my arrival shows sinus bradycardia rate 57 beats per minute, possible left atrial enlargement, incomplete right bundle-branch block, normal intervals, normal axis, no ST or T-wave abnormalities. <Dave Rankin DO - Last Filed: 05/12/24 16:22> Discharge Plan Discharge Clinical Impression: Nephrolithiasis <Edouard Ramires MD - Last Filed: 05/12/24 07:49> Patient Disposition: Home, Self-Care <Edouard Ramires MD - Last Filed: 05/12/24 07:49> Condition: Improved <Edouard Ramires MD - Last Filed: 05/12/24 07:49> Instructions: How to Strain Your Urine (ED), Hydronephrosis (ED) <Edouard Ramires MD - Last Filed: 05/12/24 07:49> Additional Instructions: Recommended straining your urine until the stone has passed. Take Toradol and oxycodone as needed for pain. Also take the Flomax daily until stone passes. Follow-up with your urologist. While taking Toradol do not take other NSAIDs such as naproxen or ibuprofen as they are the same class of drugs. Several incidental findings were seen on your CT <Edouard Ramires MD - Last Filed: 05/12/24 07:49> Prescriptions: New ketorolac 10 mg tablet 10 mg PO Q6H PRN (Reason: pain) Qty: 20 0RF Rx Instructions: maximum total duration of 5 days from all oral, intranasal, or parenteral formulations oxycodone 5 mg tablet 5 mg PO Q6H PRN (Reason: pain) Qty: 12 0RF tamsulosin [Flomax] 0.4 mg capsule 0.4 mg PO DAILY Qty: 10 0RF No Action sulfasalazine 500 mg tablet 500 mg PO BID allopurinol 100 mg tablet 200 mg PO DAILY <Edouard Ramires MD - Last Filed: 05/12/24 07:49> Follow Up/Referrals: Kelsi Atwood MD [Primary Care Provider] - <Edouard Ramires MD - Last Filed: 05/12/24 07:49> Stand Alone Forms: MyHealth Info Instructions <Edouard Ramires MD - Last Filed: 05/12/24 07:49>
[2024-05-12] MEDS: ONDANSETRON 2 MG/ML inj 4 MG IVP (07:35)
[2024-05-12 07:36] LABS: Basophils Absolute Auto 0.02 K/uL (0.00-0.30); Basophils Percent Auto 0.3 % (0.0-3.0); Eosinophils Absolute Auto 0.15 K/uL (0.00-0.50); Eosinophils Percent Auto 2.1 % (0.0-7.0); Hematocrit 43.3 % (37.0-53.0); Immature Granulocytes Abs Auto 0.02 K/uL (0.00-0.30); Immature Granulocytes Pct Auto 0.3 %; Lymphocytes Absolute Auto 2.14 K/uL (0.90-2.90); Lymphocytes Percent Auto 29.3 % (20-44); Mean Corpuscular HGB Conc 35 gm/dL (32-36); Mean Corpuscular Hemoglobin 35 pg (26-34); Mean Corpuscular Volume 100 fL (80-100); Neutrophils Absolute Auto 4.03 K/uL (1.7-7.0); Platelet Count* 292 K/uL (140-440); RDW Coefficient of Variation % 11.9 % (11.5-15.5); Red Blood Count 4.34 m/uL (4.30-5.90); White Blood Count* 7.31 K/uL (4.50-11.00)
[2024-05-12] MEDS: KETOROLAC 15 MG/ML inj IVP (07:36)
[2024-05-12 07:41] LABS: Slide Review Reflex No
[2024-05-12 07:48] LABS: Chloride* 103 mmol/L (96-114); Sodium* 139 mmol/L (135-149)
[2024-05-12 07:51] LABS: Anion Gap 12 mEq/L (7-15); Blood Urea Nitrogen* 14 mg/dL (5-24); Calcium* 9.1 mg/dL (8.4-10.6); Carbon Dioxide* 24 mmol/L (20-32); Creatinine* 0.8 mg/dL (0.5-1.5); Est. Creatinine Clearance* 139.37; Estimated Glomerular Filt Rate 111 ml/min; Glucose* 137 mg/dL (60-115)
--- OUTSIDE RECORDS SUMMARY | 2024-05-12 07:53 | XMS_ITS | Continuity of Care Document ---
Author Organization [facility] Address [address] [place] [address] Phone Care Team Providers Care Supervisor Riprap Placing Name Role Phone Gerson Damon Unavailable Unavailable [...] Visit,Est, Mod [facility], [address], [place], [place], [id number], [place] tel:[phone] [facility] [place] Spinal stenosis, cervical region Magdy Nieto. [facility], [address] [facility] [address], [place], [place], [id number], [place]. tel:[phone] Referring Provider: Andrsé Goldberg [facility] Amarilis Mcnamara, [facility] [address], [place], [address]. tel:[phone] Office/Outpati ent Visit,Est, Mod [facility], [address], [place], [place], [id number], [place] tel:[phone] [facility] Spinal stenosis, cervical region Magdy Nieto. [facility], [address], [place], [place], [id number], [place]. tel:[phone] Referring Provider: [facility] [address], [place], [address]. tel:[phone] Office/Outpati ent Visit,Est, Mod [facility], [address], [facility] [place], [id number], [place] tel:[phone] [facility] Spinal stenosis, cervical region Magdy Nieto. [facility], [address], [facility], [place], [id number], [place]. tel:[phone] Referring Provider: [facility]ie [facility]pathi [facility] [address], [place], [address]. tel:[phone] Office/Outpati ent Visit,New, Mod [facility], [address], [place], [place], [id number], [place] tel:[phone] [facility] Spinal stenosis, cervical region Magdy Nieto. [facility], [address], [place], [place], [id number], [place]. tel:[phone] Referring Provider: Obie Tripathi [facility] [address], [place], [address]. tel:[phone] Family History Family Member Type Diagnosis Age At Onset No Information Payers Payer name Insurance type Covered green party ID Vaibhav hutchison(s) [facility] [id number] Social History Type Description Quantity Date Captured [...]
--- OUTSIDE RECORDS SUMMARY | 2024-05-12 07:54 | XMS_ITS | Clinical Summary ---
Author Organization [employer] [facility] Address [address] [place] [address] Care Team Providers Care Injection Molding Process Technician Name Role Phone Obie Tripathi MD Unavailable [phone] Kelsi Atwood MD Primary Care Provide r [...] Type Department Care Team Description 05/03/2024 Refill [facility] [address] [place] [address] Obie Tripathi MD Refill Request (Sulfasalazine) 03/05/2024 Refill [facility] [address] [place] [address] Obie Tripathi MD Refill Request (Allopurinol) from [...] on file Legal Sex Male 5:41 AM FILE CLERK Gender Identity Not on file Sexual Orientation Not on file 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 Not on file Not on file Not [...] Description 06/12/2024 9:00 AM CDT Office Visit [facility] [address] [facility] [address] [place], [place] [id number] Obie Tripathi MD [address] [facility] [address] [place] [address] Health Maintenance Due Date Last Done Comments [...] REFLEX MEASURED LDL Routine 04/03/2020 11:21 AM FILE CLERK Dyslipidemia from Last 3 Months or Most Recently Relevant to Health Maintenance Results * (ABNORMAL) LIPID PANEL W REFLEX MEASURED LDL (04/03/2020 11:21 AM FILE CLERK) CHOLESTEROL,TOTAL 179 100 - 199 mg/dL 04/03/2020 5:18 PM FILE CLERK [facility] [employer] [facility] TRIGLYCERIDES 132 <150 mg/dL 04/03/2020 5:18 PM FILE CLERK [facility] HDL CHOLESTEROL 37(L) >40 mg/dL 5:18 PM FILE CLERK [facility] NON-HDL CHOLESTEROL 142 <145 mg/dl 04/03/2020 5:18 PM FILE CLERK [facility] CHOL/HDL RATIO 4.84(H) <4.50 04/03/2020 5:18 PM FILE CLERK [facility] LDL CHOLESTEROL 116 <=130 mg/dL 04/03/2020 5:18 PM FILE CLERK [facility] PROVIDER ORDERED STATUS RANDOM 04/03/2020 5:18 PM FILE CLERK [facility] Blood BLOOD SPECIMEN / Unknown Venipuncture / Unknown 04/03/2020 11:21 AM FILE CLERK 04/03/2020 11:22 AM FILE CLERK us Kelsi Atwood MD CHEMISTRY Final Result [facility] [address] [place] [address], [place] from Last 3 Months or Most Recently Relevant to Health Maintenance Insurance [facility] Care Teams Injection Molding Process Technician Relationship Specialty Start Date End Date Kelsi Atwood MD [address] [place] [address] PCP - General Family Practice 03/09/18 Obie Tripathi MD [address] Nisha Mcnamara [facility] [address] [place] [address] Rheumatology Rheumatology 07/26/17
[2024-05-12] MEDS: 0.9 % SODIUM CHLORIDE 1000 ml 1,000 ML IV ×2 (07:57→10:17)
[2024-05-12 08:11] LABS: Troponin I* < 0.01 ng/mL (0.01-0.04)
[2024-05-12] MEDS: MORPHINE 4 MG/ML INJ IVP ×2 (08:47→10:17)
[2024-05-12 11:18] LABS: Appearance Urine Clear (Clear); Bilirubin Urine Negative (Negative); Blood Urine Negative (Negative); Color Urine Yellow (Yellow); Glucose Urine Negative (Negative); Ketones Urine Negative (Negative); Leukocyte Esterase Urine Negative (Negative); Nitrite Urine Negative (Negative); Protein Urine Negative (Negative); Urobilinogen Urine 0.2 (0.2-1.0)
[2024-05-12 11:30] LABS: RBC Urine 0-2 (0-2); WBC Urine 0-2 (0-5)
== END 2024-05-12 12:38 | disposition home or self-care (01) ==
PROVIDERS: Family Medicine; Emergency Provider Student in an Organized Health Care Education/Training Program; PCP Family Medicine
DX: N20.0 Calculus of kidney (principal)
CPT/HCPCS: 36415; 74176; 80048; 81001; 84484; 85025; 93005; 96374; 96375; 99284; J1885; J2270; J2405; J7030

== ENCOUNTER 2025-02-08 23:44 | Emergency (ER) | payer OTHER, BC, SELFPAY ==
--- OUTSIDE RECORDS SUMMARY | 2025-02-08 23:48 | XMS_ITS | Clinical Summary ---
Author Organization [facility] Address [address] [place] [id number] Care Team Providers Care Photo Manager Name Role Phone Obie Tripathi MD Unavailable [phone] Kelsi Atwood MD Primary Care Provide r Allergies No known active allergies Medications multivitamin (MVI) tablet Take 1 Tablet by mouth once daily. 0 2 Active COLCRYS, colchicine, 0.6 mg tabletIndication s:Idiopathic gout, unspecified chronicity, unspecified site Take 1 Tablet (0.6 mg) by mouth one time if needed for Gout Pain. 30 Tablet 4 Active sildenafil citrate (Viagra) 100 mg tablet Take 100 mg by mouth once daily if needed for Erectile Dysfunction. Active sulfaSALAzine (AZULFIDINE) 500 mg tabletIndication s:Inflammatory arthritis TAKE ONE TABLET BY MOUTH TWICE A DAY 60 Tablet 5 5 Active allopurinoL 100 mg tabletIndication s:Gout, unspecified cause, unspecified chronicity, unspecified site TAKE TWO TABLETS BY MOUTH ONCE DAILY 60 Tablet 2 5 Active Active Problems Problem Noted Date Diagnosed Date Family history of prostate cancer 04/27/2022 Gout 03/09/2018 Bronchitis 03/09/2018 Erectile dysfunction 04/23/2015 Overweight (BMI 25.0-29.9) 04/23/2015 Mild Multilevel Lumbar DDD 01/31/2012 HTN (hypertension) 12/10/2009 Encounters Date Type Department Care Team Description 11/26/2024 Orders Only [facility] [address] [place] [address] Kelsi Atwood MD <No scans attached> 11/23/2024 4:00 PM CDT Ancillary Procedure [facility] [address] [place] [address] 11/23/2024 Travel from Last 3 Months Immunizations Immunization Administration [...] or isolated from those around you? 0 05/24/2024 Financial Resource Strain Answer Date R ecorded Difficulty of Paying Living Expenses 3 05/24/2024 Difficulty of Paying Living Expenses Not on file 05/24/2024 Food Insecurity Answer Date Recorded Do you worry your food will run out before you are able to buy more? 1 05/24/2024 Transportation Needs Answer Date Record ed Does lack of transportation keep you from medica l appointments? 1 05/24/2024 Does lack of transportation keep you from work, meetings or getting things that you need? 1 05/24/2024 Housing Stability Answer Date Recorded What is your housing situation today? 1 05/24/2024 Utilities Answer Date Recorded Do you have trouble paying f or utilities (for example, heat, electricity, water, phone)? 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 Not on file Not on file Obstetrics History Last Filed Vital Signs Vital Sign Reading Time Taken Comments Blood Pressure 132/88 09/05/2024 3:50 PM CDT Pulse 76 09/05/2024 3:50 PM CDT Temperature 36.8 C (98.2 F) 09/01/2023 7:42 AM CDT Respiratory Rate 16 06/12/2024 8:51 AM CDT Oxygen Saturation 100% 05/24/2024 9:49 AM CDT Inhaled Oxygen Concentration - - Weight 104.5 kg (230 lb 6.4 oz) 09/05/2024 3:50 PM CDT Height 189 cm (6' 2.41) 09/05/2024 3: 50 PM CDT Body Mass Index 29.26 09/05/2024 3:50 PM CDT Plan of Treatment Upcoming Encounters Date Type Department Care Team (Late st Contact Info) Description 05/24/2025 7:50 AM CDT Ancillary Procedure [facility] [address] [place] [address] Health Maintenance Due Date Last Done Comments HIV for age 15-65 1993 Hepatitis C screening for age 18-79 1996 Colonoscopy through age 75 11/03/2023 Depression screening for age 12+ 08/24/2024 08/25/2023, 08/24/2023, 08/23/2023, Additional history exists COVID-19 vaccine series (2024- season) 2024 01/06/2022, 10/05/2021, 03/20/2021, Additional history exists Influenza Vaccine (#1) 2024 , 10/05/2021, 11/27/2020, Additional history exists Lipids for age 45-75 04/03/2025 04/03/2020, 03/09/2018, 05/02/2015, Additional history exists Tetanus booster 04/21/2025 04/21/2015, 04/07, 03/26/2004 BMI (ht and wt on same day) for age 18+ 09/05/2025 09/05/2024, 12/12/2023, 08/23/2023, Additional history exists RSV vaccine for adults or (1 - 1-dose 75+ series) 2053 Hepatitis B series for 19+ Completed 12/29, 07/27/2016, 06/22/2016 Pneumococcal series for age 6-49 Aged Out No longer eligible based on patient's age to complete this topic Procedures Procedure Name Priority Date/Time Associated Diagnosis Comments CT CHEST WO Routine 11/23/2024 3:50 PM CDT Lung nodule seen on imaging study LIPID PANEL W REFLEX MEASURED LDL Routine 04/03/2020 11:21 AM COLLECTION COORDINATOR Dyslipidemia from Last 3 Months or Most Recently Relevant to Health Maintenance Results * CT CHEST WO (11/23/2024 3:50 PM CDT) Anatomical Region Laterality Modality CHEST, THORAX, HEART Computed To mography 11/23/2024 4:29 PM CDT Narrative 11/23/2024 4:29 PM CDT For Patients: As a result of the Cures Act, medical imaging exams and procedure reports are released immediately into your electronic medical record. You may view this report before your referring provider. If you have questions, please contact your health care provider. Indication: Lung nodule Technique: Noncontrast CT chest Please note that all CT scans at this facility use dose modulation, iterative reconstruction, and/or weight-based dosing when appropriate to reduce radiation dose to as low as reasonably achievable. Comparison: None Findings: Visualized thyroid is within normal limits. No mediastinal, hilar or axillary adenopathy. Mild hepatic steatosis. No adrenal nodule. Gallbladder incompletely distended. No hiatal hernia. Discogenic spurring lower thoracic spine. No fracture. A few scattered subcentimeter upper retroperitoneal lymph nodes are present which are considered within normal limits. 3 millimeter nodule right middle lobe, 9/93. 4 millimeter nodule right middle lobe, 9/106. 7.9 millimeter nodule right lower lobe, 9/109. Right lower lobe nodule measures 1.5 millimeter, 9/117. 2 millimeter nodule within the right middle lobe, 9/119. Additional 2 millimeter nodules in the right middle lobe are present elsewhere. Also there is a 2 millimeter nodule within the left lower lobe, 9/130. Impression: 7.9 millimeter right lower lobe pulmonary nodule. Follow-up CT in 6 months recommended. Please note that all CT scans at this facility use dose modulation, iterative reconstruction, and/or weight-based dosing when appropriate to reduce radiation dose to as low as reasonably achievable. Dictated by Tanvir Obrien MD @ 11/23/2024 4:29:45 PM (Electronically Signed) Procedure Note Tanvir Obrien MD - 11/23/2024 For Patients: As a result of the Cures Act, medical imagingexams and procedure reports are released immediately into your electronicmedical record. You may view this report before your referring provider.If you have questions, please contact your health care provider. Indication: Lung nodule Technique: Noncontrast CT chest Please note that all CT scans at this facility use dose modulation,iterative reconstruction, and/or weight-based dosing when appropriate toreduce radiation dose to as low as reasonably achievable. Comparison: None Findings: Visualized thyroid is within normal limits. No mediastinal, hilar oraxillary adenopathy. Mild hepatic steatosis. No adrenal nodule.Gallbladder incompletely distended. No hiatal hernia. Discogenic spurringlower thoracic spine. No fracture. A few scattered subcentimeter upperretroperitoneal lymph nodes are present which are considered within normallimits. 3 millimeter nodule right middle lobe, /93. 4 millimeter noduleright middle lobe, /106. 7.9 millimeter nodule right lower lobe, /109.Right lower lobe nodule measures 1.5 millimeter, /117. 2 millimeternodule within the right middle lobe, /119. Additional 2 millimeternodules in the right middle lobe are present elsewhere. Also there is a 2millimeter nodule within the left lower lobe, /130. Impression: 7.9 millimeter right lower lobe pulmonary nodule. Follow-up CT in 6 monthsrecommended. Please note that all CT scans at this facility use dose modulation,iterative reconstruction, and/or weight-based dosing when appropriate toreduce radiation dose to as low as reasonably achievable. Dictated by Tanvir Obrien MD @ 11/23/2024 4:29:45 PM (Electronically Signed) us Kelsi Atwood MD CT Final Result * (ABNORMAL) LIPID PANEL W REFLEX MEASURED LDL (04/03/2020 11:21 AM COLLECTION COORDINATOR) CHOLESTEROL,TOTAL 179 100 - 199 mg/dL 04/03/2020 5:18 PM COLLECTION COORDINATOR [facility] TRIGLYCERIDES 132 <150 mg/dL 04/03/2020 5:18 PM COLLECTION COORDINATOR [facility] HDL CHOLESTEROL 37(L) >40 mg/dL 5:18 PM COLLECTION COORDINATOR [facility] NON-HDL CHOLESTEROL 142 <145 mg/dl 04/03/2020 5:18 PM COLLECTION COORDINATOR [facility] CHOL/HDL RATIO 4.84(H) <4.50 04/03/2020 5:18 PM COLLECTION COORDINATOR [facility] TR[facility] LDL CHOLESTEROL 116 <=130 mg/dL 04/03/2020 5:18 PM COLLECTION COORDINATOR [facility] TRAL [facility] PROVIDER ORDERED STATUS RANDOM 04/03/2020 5:18 PM COLLECTION COORDINATOR [facility] TRA [facility]AT[facility] Blood BLOOD SPECIMEN / Unknown Venipuncture / Unknown 04/03/2020 11:21 AM COLLECTION COORDINATOR 04/03/2020 11:22 AM COLLECTION COORDINATOR us Kelsi Atwood MD CHEMISTRY Final Result [facility] [address] [place] [address], from Last 3 Months or Most Recently Relevant to Health Maintenance Insurance [facility] [place] [address] Care Teams Photo Manager Relationship Specialty Start Date End Date Kelsi Atwood MD [address] [place] [phone] PCP - General Family Practice 03/09/18 Obie Tripathi MD [address] [facility] [address] [facility] [address] [place] [address] Rheumatology Rheumatology 07/26/17
--- OUTSIDE RECORDS SUMMARY | 2025-02-08 23:48 | XMS_ITS | Data Portability ---
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 Lab prostate specific Ag, serum or plasma 2024 025 [facility], [address], [address], [place], [address], 12:41:28 Referral None recorded. Procedures None recorded. Surgeries None recorded. Imaging US, kidney 2024 025 [email or web address] [facility], [address], [place], [address], 06/19/202 5 11:14:42 Medication Orders Edex 20 mcg intracavern osal kit [address], [address], 5 08:18:41 testosteron e 20.25 mg/1.25 gram per pump act.(1.62 %) transdermal gel 2023 024 [facility], [address] [place], [address], 5 08:18:52 Patient TargetsNo targets recorded. Patient Instructions Encounter Date Encounter Id Patient Instructions Last Modified By Organization Details Last Modified Time 04/19/2023 [id number] Erectile dysfunc tion: We had a long [...] prostate specific antigen and exam are normal. Not available 04/19/2023 09:46:29 09/13/2023 [id number] Hypogonadism: His sexual function is somewhat better. [...] 1 year. Not available 09/13/2023 09:46:13 02/16/2024 [id number] 43 y/o male pres ents for a [...] next week. [email or web address] Not available 02/16/2024 13:19:24 07/23/2024 [id number] Hypogonadism: While he was previously on this his testosterone in October were within the normal range. We will monitor. Erectile dysfunction: Continue Edex as needed. Benign prostatic hyperplasia with lower urinary tract symptoms: Stable. Prostate cancer screening/Family history of prostate cancer He is due for repeat prostate specific antigen testing. We will check this today. Kidney stones: First episode. We will check an ultrasound to ensure no residual hydronephrosis. Not available 07/23/2024 08:27:56 Reason for Referral None Reported. Results Created Date Observation Date Name Description Value Unit Range Abnormal Flag Note LastModifiedBy Organization Detail LastModifiedTime 07/24/19 25 07/23/2024 PSA, TOTAL , SCREE N-RANDA HE PSA, total 0.80 NG/mL 0.00-4 .00 This resul t is repor [place] using a new metho dolog y for Total PSA. Previ ous resul ts using the old metho d are not direc tly liza rable . The expec [place] varia tion is small ( appro ximat ros 1% diffe rence https ://pu bmed. ncbi. nlm.n .go v/346 47069 /), but pleas e consi maria t a new basel ine for the patie nt. This lab resul t is being provi ded to you and your provi maria t at the same time in compl iance with the Centu ry Cures Act. Your provi maria t may not have had time to revie w and make recom menda tions based on the resul t. Pleas e allow up to one week for provi maria t revie w. Not Available [facility] [address], [place], [address], 07/23/2024 12:41:28 Result Notes None recorded. Problems Name Problem SNOMED Code Status Onset Date Resolution Date Notes Provider Name and Address Organization Details Recorded Time Hypertensiv e disorder 83955000 Active 2023 Ricardo mcnulty [facility] 4 13:06:00 Gout 66441030 Active 2023 Ricardo mcnulty [facility] 4 13:06:04 Degeneratio n of lumbar interverteb ral disc 06379035 Active 2023 Ricardo mcnulty [facility] 4 13:06:15 Primary erectile dysfunction 545197428 Active 2023 Ricardo mcnulty, [facility] 4 10:56:38 Lower urinary tract symptoms due to benign prostatic hypertrophy 3810983958349 1 Active 2023 Ricardo Gordon null, [facility] 4 10:56:49 Family history of malignant neoplasm of prostate 774011957 Active 2023 Ricardo Quezada pricila, [facility] 4 10:56:57 Problem Notes None recorded. Procedures Surgical History Date Name Laterality Status Provider Name and Address Organization Details Recorded Time 5 COMPLEX VISIT completed Zuhair Blackwood MD [address] [place] [address], [phone], [facility] 07/20/2024 08:50:[address] [facility] 07/23/2024 08:21:40 5 Blood Draw/DRIER AND GRINDER TENDER/PSA RESULTS completed Lexi Cordero [facility] 07/23/2024 08:33:41 4 COMPLEX VISIT completed Zuhair Blackwood MD [address] [place] [address],[address], [address], [facility] 09/13/2023 08:49:52 4 COMPLEX VISIT completed Zuhair Blackwood MD [address] [place] [address],[address], [address], [facility] 04/19/2023 09:37:26 Removal of sperm duct(s) completed [...] intracav ernosal as directed for sexual activity 07/23 completed HN: Patient reports no longer taking Not Available Not Available Not Available sulfasala zine 500 mg tablet TAKE ONE [...] completed Not Available Not Available Not Available ketorolac 10 mg tablet TAKE ONE TABLET BY MOUTH EVERY 6 HOURS NEEDED FOR PAIN MAXIMUM TOTAL DURATION OF 5 DAYS FROM ALL ORAL, INTRANAS AL, OR PARENTER AL 07/23 completed HN: Patient reports no longer taking Not Available Not Available Not Available oxycodone -acetamin ophen 5 mg-325 mg tablet TAKE 1 TABLET BY MOUTH EVERY 4 HOURS IF NEEDED FOR PAIN. MAX ACETAMIN OPHEN DOSE 4000MG IN 24 HRS. 09/12 completed HN: Patient reports no longer taking Not Available Not Available Not Available tamsulosi n 0.4 mg capsule TAKE 1 CAPSULE (0.4 MG) BY MOUTH ONCE DAILY AFTER A MEAL. 07/23 completed HN: Patient reports no longer taking Not Available Not Available Not Available venlafaxi ne 37.5 mg tablet 37.5mg 1/day 04/18 completed Not Available Not Available Not Available Viagra 100 mg tablet 100mg As needed before sex 09/12 completed HN: Patient reports no longer taking Not Available Not Available Not Available oxycodone 5 mg tablet TAKE ONE TABLET BY MOUTH EVERY SIX HOURS NEEDED FOR PAIN 07/23 completed HN: Patient reports no longer taking Not Available Not Available Not Available tadalafil 20 mg tablet TAKE ONE TABLET BY MOUTH EVERY DAY NEEDED - TAKE 1 HOUR PRIOR TO SEXUAL ACTIVITY 07/23 completed Not Available Not Available Not Available Cialis 10 mg tablet 10mg As needed Before sex 07/23 completed HN: Patient reports no longer taking Not Available Not Available Not Available Colcrys 0.6 mg tablet TAKE 1 TABLET (0.6 MG) BY MOUTH ONE TIME IF NEEDED FOR GOUT PAIN. 09/12 completed HN: Patient reports no longer taking Not Available Not Available Not Available testoster one 20.25 mg/1.25 gram per pump act.(1.62 %) transderm al gel Apply 2 pumps every day by transder mal route. 07/23 completed HN: Patient reports no longer taking Not Available Not Available Not Available Vitals Date Recorded Body weight Body mass index (BMI) Body height Provider Name and Address Organization Details Last Updated DateTime 04/19/2023 741939.6063 46354 g 28.6 kg/m2 193.04 cm Not Available Health Note 04/19/2023 08:45:17 Date Recorded Body weight Body height Body mass index (BMI) Provider Name and Address Organization Details Last Updated DateTime 07/23/2024 528626.7208 40823 g 190.5 cm 29.4 kg/m2 Not Available Health Note 07/23/2024 08:13:58 Date Recorded Body height Provider Name an d Address Organization Details Last Updated DateTime 09/13/2023 193.04 cm Ricardo Gordon [facility] 09:29:27 Date Recorded Body height Body mass index (BMI) Body weight Provider Name and Address Organization Details Last Updated DateTime 02/16/2024 193.04 cm 28.6 kg/m2 066526.21 g Anthony Nguyen [facility] 02/16/2024 12:39:27 Social History Question Answer Notes LastModified by Melodigram Details LastModified Time Tobacco Smoking Status Never Smoker Not Available Health Note 07/21/2024 08:39:56 Do You Have An Advance Directive? No [email or web address] Information not available 07/21/2024 What Is Your Level Of Caffeine Consumption? Moderate [email or web address] Information not available 07/21/2024 How Much Tobacco Do You Chew? None [email or web address] Information not available 07/21/2024 Do You Have A Medical Power Of Enterprise Mobility Architect? No [email or web address] Information not available 07/21/2024 What Was The Date Of Your Most Recent Tobacco Screening? 07/23/2024 [email or web address] Information not available 07/21/2024 Have You Ever Been Counseled For Unhealthy Alcohol Use? Yes Information not available 04/19/2023 What Is Your Relationship Status? [email or web address] Information not available 07/21/2024 Are You Sexually Active? Yes [email or web address] Information not available 07/21/2024 Has Tobacco Cessation Counseling Been Provided? No Information not available 04/19/2023 How Many Days In The Past Year Have You Consumed 5 Or More Drinks? 5 [email or web address] Information no t available 07/21/2024 Sex: Unknown Functional Status Question Answer Note LastModified by Melodigram Details LastModified Time Do you use any illicit or recreational drugs? No [email or web address] Information not available 07/21/2024 Do you or have you ever used any other forms of tobacco or nicotine? No Information not available 04/19/2023 What is your level of alcohol consumption? Occasional [email or web address] Information not available 07/21/2024 Do you or have you ever used smokeless tobacco? Never used smokeless tobacco [email or web address] Information not available 07/21/2024 Do you or have you ever used e-cigarettes or vape? Never used electronic cigarettes [email or web address] Information not available 07/21/2024 Mental Status None recorded. Family History Relationship [...] vaccine, UNSPECIFIED 2 completed Ricardo Meath null, [facility] 04/19/2023 08:45:14 influenza, unspecified formulation 2 completed Ricardo Meath null, [facility] 04/19/2023 08:45:14 Influenza, split virus, quadrivalent, preservative 0 completed Ricardo Meath null, [facility] 04/19/2023 08:45:14 Influenza, MDCK, quadrivalent, preservative 1 completed Ricardo Meath null, [facility] 04/19/2023 08:45:14 Influenza, MDCK, quadrivalent, preservative 2 [facility] 08:45:14 COVID-19, mRNA, LNP-S, PF, 100 mcg/0.5mL dose or 50 mcg/0.25mL dose 2 completed Ricardo Meath null, [facility] 04/19/2023 08:45:14 COVID-19, mRNA, LNP-S, PF, 100 mcg/0.5mL dose or 50 mcg/0.25mL dose 1 completed Ricardo Meath null, [facility] 04/19/2023 08:45:14 COVID-19, mRNA, LNP-S, PF, 100 mcg/0.5mL dose or 50 mcg/0.25mL dose 1 completed Ricardo Meath null, [facility] 04/19/2023 08:45:14 COVID-19, mRNA, LNP-S, bivalent, PF, 50 mcg/0.5 mL or 25mcg/0.25 mL dose 2 [facility] 08:45:14 Novel [id number], all formulations 9 [facility] 08:45:14 Influenza, split virus, trivalent, PF 0 completed Ricardo Meath null, [facility] 04/19/2023 08:45:14 Td (adult), 5 Lf tetanus toxoid, preservative free, adsorbed 6 completed Ricardo Meath null, [facility] 04/19/2023 08:45:14 Hep B, adult 7 completed Ricardo Meath null, [facility] 04/19/2023 08:45:14 Hep B, adult 7 completed Ricardo Meath null, [facility] 04/19/2023 08:45:14 Hep B, adult 7 completed Ricardo Meath null, [facility] 04/19/2023 08:45:14 Influenza, split virus, quadrivalent, PF 9 completed Ricardo Meath null, [facility] 04/19/2023 08:45:14 Influenza, split virus, quadrivalent, PF 7 completed Ricardo Meath null, [facility] 04/19/2023 08:45:14 Influenza, split virus, quadrivalent, PF 8 completed Ricardo Meath null, [facility] 04/19/2023 08:45:14 Past Encounters Encounter ID Performer Location Encounter Start Date Encounter Closed Date Diagnosis/Indication Diagnosis SNOMED-CT Code Diagnosis ICD10 Code Diagnosis IMO Codes Diagnosis Note [id number] Zuhair Blackwood MD [employer] [facility] [address] [place] [address] 04/19/2023 08:42:35 04/19/2023 09:58:09 Screening for harmful pattern of alcohol use 235258549 Z13.39 Primary er ectile dysfunction 086975557 N52.9 Lower urin seven tract symptoms due to benign prostatic hypertrophy 8529867256 9101 N40.1 Family his tory of malignant neoplasm of prostate 278950349 Z80.42 [id number] Zuhair Blackwood MD [employer] [facility] [address] [place] [address] 09/13/2023 08:04:56 09/13/2023 11:34:00 Primary erectile dysfunction 890606206 N52.9 Lower urin seven tract symptoms due to benign prostatic hypertrophy 7376276357 9101 N40.1 Family his tory of malignant neoplasm of prostate 052589147 Z80.42 Male hypogonadism 971702 06 E29.1 [id number] BRAXTON CHANDLER [address] [address] 02/16/2024 12:38:34 02/16/2024 13:27:46 Primary erectile dysfunction 843693525 N52.9 Hypogonadism 75422119 E2 9.1 [id number] [facility] [address] 07/23/2024 08:13:12 07/26/2024 14:32:23 Primary erectile dysfunction 862618392 N52.9 Lower urin seven tract symptoms due to benign prostatic hypertrophy 4181118695 9101 N40.1 Family his tory of malignant neoplasm of prostate 191597642 Z80.42 Male hypogonadism 519457 06 E29.1 Screening for malignant neoplasm of prostate 293030899 Z12.5 Kidney stone 13397535 N2 0.0 [id number] Health Concerns Section Related Observation LastModified by Organization Detai ls LastModified Time None Recorded Concern Status LastModified by Organization Details LastModified Time None Recorded Advance Directives Directive N: Payers Insurance Date Sequence Insurance Name Policy Number Policy Colby Covered Member ID Colby Member ID Guarantor Name 09/12/2023 1 [employer] - OPEN ACCESS CHOICE (HMO) Singh E Dani [id number] Singh E Dani 07/26/2024 1 [facility] [id number] Singh E Dani [id number] Singh E Dani 02/16/2024 1 *SELF PAY* Wy att E Dani 03/26/2024 1 [employer] [id number] Singh E Dani [id number] Singh E Dani Notes Date Note Type Note Provider Name and Address Organization Details Recorded Time text/html This is a 42 year old [...] was 0.65 ng/mL (01/18/2023). Zuhair Blackwood MD [address] [place] [address],[address], [address], [facility] 04/19/2023 09:47:04 4 text/html This is [...] was 0.65 ng/mL (01/18/2023). Zuhair Blackwood MD [address] [place] [address],[address] [place] [address], [phone], [facility] 09/13/2023 09:46:56 4 text/html Erectile DysfunctionReported by [email or web address] y/o male presents for an evaluation of [...] is interested in penile injections. BRAXTON CHANDLER [address] [place] [address],[address], [place], [address], [facility] 02/16/2024 13:20:24 5 text/html This is a 43 year old male who is here for the ongoing management of benign prostatic hyperplasia with lower urinary tract symptoms, erectile dysfunction, and hypogonadism. He was previously managing his testosterone levels with androgel but this normalized without treatment.His most recent serum testosterone was 521 ng/dL (09/13/2023).He has been on therapy for some time now. International Prostate Symptom Score: 6He is not currently on medical therapy.He denies dysuria or gross hematuria. International Index Of Erectile Function Score (IIEF): 5He manages his symptoms with Edex 20 mcg as needed. Two of his uncles and his grandfather had prostate cancer.His most recent prostate specific antigen was 0.65 ng/mL (01/18/2023). He passed a stone since our last visit. Lexi mcnulty [facility] 07/23/2024 08:33:45
[2025-02-08 23:52] VITALS: BP 168/108; PULSE 68; RESP 18; TEMP 36.7; O2SAT 99; BMI 29.5
--- NOTE | 2025-02-08 23:57 | ED.DIZZY ---
HPI - Dizziness General Time Seen by Provider: 23:57 Date Seen: 02/08/25 Chief Complaint: Dizziness/Vertigo Stated Complaint: dizzy Time Seen by Provider: 02/08/25 23:57 Source: patient and RN notes reviewed Mode of arrival: ambulatory Limitations: no limitations History of Present Illness HPI Narrative: This 44-year-old male started with sudden onset of lightheadedness/ dizziness which has a sense of spinning to it around 930 tonight. 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 He was up on his feet for 2 hours. he did not have any sudden movement change in position of his head that precipitated this. He feels the symptoms even when lying there. He feels a spinning sensation. No ringing of his ears, no hearing loss. He has never had anything like this before. He feels unsteady when he walks but his states he is walking straight, she has been watching him. He came in because he was worried that maybe he was having a heart attack or stroke. He has no history of documented hypertension, hyperlipidemia, diabetes. He did not drink any alcohol tonight. Denies being sick with anything, no cough cold symptoms, no recent illness. MD elicited complaint: dizziness, lightheadedness, vertigo and disequilibrium Related Data Previous Rx's ?Medication ?Instructions ?Recorded meclizine 25 mg tablet 25 mg PO QID #60 tabs 02/09/25 Allergies Allergy/AdvReac Type Severity Reaction Status Date / Time No Known Drug Allergies Allergy Verified 02/08/25 23:54 Review of Systems Status of ROS: Reports: 6 or more systems reviewed and unremarkable except as noted in History and below [facility] Social History Smoking Status: Never smoker Second hand tobacco smoke exposure: No How often do you have a drink containing alcohol: never AUDIT-C Alcohol total score: 0 Non-prescribed substance use: denies use Exam Const: Vital Signs, click to edit/add: Vital Signs - 24 hr 02/08/25 23:52 02/09/25 00:03 02/09/25 00:07 Temperature 98.0 F Pulse Rate 67 Pulse Rate [Right Pulse Oximeter] 68 Respiratory Rate 18 18 Blood Pressure 182/97 H Blood Pressure [Ri ght Upper Arm] 168/108 H Pulse Oximetry 99 99 100 Oxygen Delivery Me thod Room Air 02/09/25 00:47 02/09/25 01:02 02/09/25 01:17 Temperature 98.1 F Pulse Rate 71 65 61 Pulse Rate [Right Pulse Oximeter] Respiratory Rate 11 L 16 18 Blood Pressure 146/88 H 146/94 H 143/92 H Blood Pressure [Ri ght Upper Arm] Pulse Oximetry 94 98 99 Oxygen Delivery Me thod 02/09/25 01:26 Temperature 98.1 F Pulse Rate Pulse Rate [Right Pulse Oximeter] 68 Respiratory Rate 18 Blood Pressure Blood Pressure [Ri ght Upper Arm] 168/108 H Pulse Oximetry Oxygen Delivery Me thod This 44-year-old male is alert, interactive, no apparent distress. He is sitting up in the bed in exam room 5. Is able to keep his eyes open. Pupils are equal round, conjugate gaze. Extraocular muscles intact, no significant nystagmus noted. He does have a catch-up saccade, can keep his eyes open through this maneuver. He does have symmetrical facial function, speech is normal. Neck supple, no adenopathy or masses. He is able to sit up, lungs are clear, good air entry, wheezing or crackles, no accessory muscle use. He has no truncal ataxia. CV regular rate and rhythm, no murmur, normal S1-S2. Abdomen is soft, nontender, nondistended and without any organomegaly or masses. He has no lower extremity edema. Strength is 5/5 and symmetric. No tremors, no dysmetria noted. Would say NIH is 0 on my exam at this time. Documenting provider has reviewed patient's vital signs: yes Course Course ED Course: We will plan on talking to Neurology, proceeding as stroke code. This seems to be vertigo but is complaining of gait unsteadiness although I do not see any peripheral evidence of motor dysfunction. We will proceed with head CT, CTA of head neck. He will be on cardiac monitoring and pulse oximetry looking for arrhythmia, ischemia. We will get an EKG, full complement of labs. I will treat his symptoms with normal saline, treat his nausea with Zofran. We will treat the dizziness /spinning/vertigo with a dose of IV Valium and a dose of oral meclizine. Last known well was about 930. Reevaluation(s) Time of Reevaluation #1: 00:14 Reevaluation #1: Patient is ambulating of his own accord over to CT imaging, brief visualization of gait looks normal. Time of Reevaluation #2: 01:02 Reevaluation #2: Reviewed his CT imaging with them. He has a congenital small right vertebral artery but there is nothing concerning on any of his imaging. Reviewed my conversation with the stroke neurologist. Primary will be to discharge to home. He still feels some dizziness but the nausea is gone. I suspect that he may have some labyrinthitis or vestibulitis, may have symptoms for 1-2 weeks. Will send him with Zoching from [employer], 10 pills. We did review that his blood pressure should be rechecked in clinic, make sure he does not have hypertension. We did discuss that blood presure is frequently elevated in the ED. is a stressful environment for patient's and physiology often reflects this. We also reviewed in his labs that his liver enzymes are mildly elevated and the most common cause for people in [place] is usually fatty liver disease. This should be followed and rechecked with his primary. We discussed mainstay of treatment for fatty liver disease is weight loss and exercise. Consultations Consultation #1: Have talked to Dr. Kelley from [facility] at [place]. She agrees with proceeding with the CT imaging is ordered. With vertigo alone, she is not planning on treating with lytics. She does wonder if we might be able to do MR imaging here tomorrow, I will see if there will be anybody that is trained in it that could possibly do MR imaging on the weekend. I will get back to her on that. 12:52 a.m.: Dr. Kelley called back. She states his CT CTA are normal, no occlusion, no dissection. She feels this is peripheral. She does not feel that he needs to have MR imaging emergently. Could be considered if he has ongoing symptoms or further concerns. Time: 00:10 Vital Signs Vital signs: Initial Vital Signs Temperature 98.0 F 02/08/25 23:52 Temperature Source Temporal Artery Scan 02/08/25 23:52 Pulse Rate 68 02/08/25 23:52 Pulse Rhythm Regular 02/08/25 23:52 Pulse Strength 3+ Normal 02/08/25 23:52 Respiratory Rate 18 02/08/25 23:52 Blood Pressure 168/108 H 02/08/25 23:52 Blood Pressure Mean 128 H 02/08/25 23:52 Blood Pressure Position Supine 02/08/25 23:52 Pulse Oximetry 99 02/08/25 23:52 Oxygen Delivery Method Room Air 02/08/25 23:52 Vital Signs Temperature 98.0 F 02/08/25 23:52 Pulse Rate 68 02/08/25 23:52 Respiratory Rate 18 02/08/25 23:52 Blood Pressure 168/108 H 02/08/25 23:52 Pulse Oximetry 99 02/08/25 23:52 Oxygen Delivery Method Room Air 02/08/25 23:52 Temperature 98.1 F 02/09/25 01:26 Pulse Rate 68 02/09/25 01:26 Respiratory Rate 18 02/09/25 01:26 Blood Pressure 168/108 H 02/09/25 01:26 Pulse Oximetry 99 02/09/25 01:17 Oxygen Delivery Method Room Air 02/08/25 23:52 Medications Administered Medications: Discontinued Medications Generic Name Dose Route Start Last Admin Trade Name Freq PRN Reason Stop Dose Admin Diazepam 5 mg 02/09/25 00:12 02/09/25 00:31 Diazepam 5 Mg/Ml Inj IV 02/09/25 00:13 5 mg ONCE ONE Administration Sodium Chloride 1,000 mls @ 500 mls/hr 02/09/25 00:13 02/09/25 01:11 0.9 % Sodium Chloride 1000 Ml IV 02/09/25 02:12 Infused .Q2H LENI Infusion Meclizine HCl 25 mg 02/09/25 00:12 02/09/25 00:31 Meclizine Hcl 25 Mg Tablet PO 02/09/25 00:13 25 mg ONCE ONE Administration Ondansetron HCl 4 mg 02/09/25 00:12 02/09/25 00:31 Ondansetron 2 Mg/Ml Inj IVP 02/09/25 00:13 4 mg ONCE ONE Administration MDM - Dizziness Lab Data Attestation: I reviewed the patient's lab results. Labs: Lab Results 02/09/25 Range/Units 00:00 WBC 7.10 (4.50-11.00) K/uL RBC 4.45 (4.30-5.90) m/uL Hgb 15.1 (13.5-17.5) gm/dL Hct 43.7 (37.0-53.0) % MCV 98 (80-100) fL MCH 34 (26-34) pg MCHC 35 (32-36) gm/dL RDW Coeff of Jonathan 11.6 (11.5-15.5) % Plt Count 263 (140-440) K/uL Neut % (Auto) 57.9 (42.0-72.0) % Lymph % (Auto) 25.8 (20-44) % Ellis % (Auto) 13.9 H (0.0-11.0) % Eos % (Auto) 1.8 (0.0-7.0) % Baso % (Auto) 0.3 (0.0-3.0) % Neut # (Auto) 4.11 (1.7-7.0) K/uL Lymph # (Auto) 1.83 (0.90-2.90) K/uL Ellis # (Auto) 1.00 H (0.00-0.90) K/UL Eos # (Auto) 0.13 (0.00-0.50) K/uL Baso # (Auto) 0.02 (0.00-0.30) K/uL Abs Immat Gran (auto) 0.02 (0.00-0.30) K/uL Imm/Tot Granulo (auto) 0.3 % Sodium 139 (135-149) mmol/L Potassium 4.3 (3.6-5.1) mmol/L Chloride 98 (96-114) mmol/L Carbon Dioxide 27 (20-32) mmol/L Anion Gap 14 (7-15) mEq/L BUN 14 (5-24) mg/dL Creatinine 0.8 (0.5-1.5) mg/dL Estimated Creat Clear 134.15 Estimated GFR 111 ml/min Glucose 125 H (60-115) mg/dL Lactate 1.2 (0.5-1.9) mmol/L Calcium 9.0 (8.4-10.6) mg/dL Magnesium 2.0 (1.5-2.6) mg/dL Total Bilirubin 0.6 (0.1-1.5) mg/dL AST 43 H (12-35) U/L ALT 76 H (4-50) U/L Alkaline Phosphatase 73 (40-150) U/L POC Troponin I High Sensi 3.8 (2.9-28.0) pg/mL C-Reactive Protein < 0.5 L (0.5-1.0) mg/dL Total Protein 8.4 H (6.0-8.3) g/dL Albumin 5.0 (3.3-5.0) g/dL Imaging Data CT scan - head: Attestation: I have reviewed the pertinent imaging results. Radiologist's impression: Patient: [facility] Facility:?[facility] Patient ID:?[id number] Site Patient ID:?[id number]. Site :?1980 Study:?CT-Head W/O CODE STROKE NEURO 247 315 0541-02/09/2025 12:29:44 AM Ordering Physician:?Lizzy Reardon Final Report: Indication: Sudden onset dizziness Technique: Noncontrast CT through the head with multiplanar reformats Comparison: None Findings: Brain: No acute hemorrhage. No acute infarct. No significant mass effect or midline shift. No gross evidence of a mass lesion or cerebral edema. Ventricles: No acute abnormality appreciated. Orbits, sinuses, mastoids: No acute abnormality appreciated. Calvarium and soft tissues: No acute abnormality appreciated. Impression: No acute abnormality appreciated. Please note that all CT scans at this facility use dose modulation, iterative reconstruction, and/or weight-based dosing when appropriate to reduce radiation dose to as low as reasonably achievable. Dictated by Dickson Hester MD @ 02/09/2025 12:53:03 AM (Electronic Signature) CT- Other: Attestation: I have reviewed the pertinent imaging results. Radiologist's impression: Patient: [facility] Facility:?[facility] Patient ID:?[id number] Site Patient ID:?[id number]. Site :?1980 Study:?CT-Head Angio HEAD ANGIO W/95CC [id number]/6/2025 12:30:56 AM Ordering Physician:?Lizzy Reardon Preliminary Report: Indication: Sudden onset dizziness Technique: CT angiogram of the head and neck following 95 mL Isovue 370 IV contrast. Multiplanar MIP images obtained. Comparison: None Findings: Preliminary report, full report to follow. Impression: CTA head: No acute abnormality appreciated. CTA neck: Developmentally diminutive right vertebral artery with no acute abnormality appreciated. Dictated by Dickson Hester MD @ 02/09/2025 12:55:13 AM Read by:?Dickson Hester MD @02/09/2025 12:55:17 AM ECG Data Attestation: I personally reviewed and interpreted this ECG as follows: ( Normal sinus rhythm, incomplete right bundle branch block. New evidence of ischemia or infarct. QT corrected 462 milliseconds.) ECG interpretation date: 02/09/25 ECG interpretation time: 00:40 Prior ECG tracings: available for review ( Compared to 05/12/2024, sinus bradycardia with incomplete right bundle branch block at that time, QT corrected was 439 milliseconds.) Discharge Plan Discharge Clinical Impression: Vertigo Patient Disposition: Home, Self-Care Condition: Stable Instructions: Vertigo (ED) Additional Instructions: Can use the Zofran 4 mg every 8 hours as needed for nausea or vomiting. Meclizine 25 mg every 6 hours as needed for ongoing dizziness or spinning symptoms. You are assessed to have peripheral vertigo here in the ED. You do need to follow up in clinic this next week for recheck. Your blood pressure should be watched to make sure that you are not developing hypertension. If there is concern, you should be treated for hypertension. You also need to review with your primary provider that your liver enzymes were mildly elevated, can talk about further management and workup but I suspect this is from fatty liver disease. Your primary care provider can help you with following this and attempting treatment, deciding if further workup is needed. If you are worsening, symptoms not controlled at all with the outlined measures, MRI imaging of the brain with a noncontrast MRI could be considered. Activity Level: Activity as Tolerated Prescriptions: New meclizine 25 mg tablet 25 mg PO QID Qty: 60 0RF Follow Up/Referrals: Kelsi Atwood MD [Primary Care Provider, Family Practice] Stand Alone Forms: [employer] Info Instructions
[2025-02-09 00:03] VITALS: O2SAT 99
--- NOTE | 2025-02-09 00:03 | CRLHL7_ITS ---
For Patients: As a result of the Century Cures Act, medical imaging exams and procedure reports are released immediately into your electronic medical record. You may view this report before your referring provider. If you have questions, please contact your health care provider. Indication: Sudden onset dizziness Technique: Noncontrast CT through the head with multiplanar reformats Comparison: None Findings: Brain: No acute hemorrhage. No acute infarct. No significant mass effect or midline shift. No gross evidence of a mass lesion or cerebral edema. Ventricles: No acute abnormality appreciated. Orbits, sinuses, mastoids: No acute abnormality appreciated. Calvarium and soft tissues: No acute abnormality appreciated. Impression: No acute abnormality appreciated. Please note that all CT scans at this facility use dose modulation, iterative reconstruction, and/or weight-based dosing when appropriate to reduce radiation dose to as low as reasonably achievable. Dictated by Dickson Hester MD @ 02/09/2025 12:53:03 AM (Electronically Signed)
--- NOTE | 2025-02-09 00:03 | CT_ITS ---
Patient: ERWIN DUARTE Facility:?[facility] Patient ID:?[id number] Site Patient ID:?[id number]. Site :?1980 Study:?CT-Head Angio HEAD ANGIO W/95CC [id number]/[id number] 12:30:56 AM Ordering Physician:?Lizzy Reardon Final Report: DATE: 02/09/2025 CLINICAL HISTORY: Patient with dizziness. TECHNIQUE: Standard helical CT image acquisition through the head and neck was performed after intravenous contrast bolus enhancement. 2D and 3D MIP images for post- processing were performed and interpreted on an independent workstation and 3D images were permanently archived. COMPARISON: CT same day. FINDINGS: The origins of the great vessels from the aortic arch are patent. The origin of the right vertebral artery is patent. The origin of the left vertebral artery is patent. The common carotid arteries are patent There is no stenosis at the origin of the right internal carotid artery. There is no stenosis at the origin of the left internal carotid artery. The rest of the cervical segments of the internal carotid arteries are patent up to their intracranial segments. The intracranial segments of the internal carotid arteries are patent. The left vertebral artery is dominant. The cervical segments of the vertebral arteries are patent. The intracranial segments of the vertebral arteries are patent. The middle cerebral arteries are normal without aneurysm or proximal occlusion identified. The anterior cerebral arteries are normal without aneurysm or proximal occlusion identified. The anterior communicating artery is well visualized and appears normal. The basilar artery is normal without aneurysm or occlusion. The posterior cerebral arteries are normal without aneurysm or proximal occlusion. There is normal opacification of major intracranial venous structures. The visualized lung apices are unremarkable The thyroid gland is unremarkable. The soft tissues of the neck are unremarkable. There are degenerative changes in the cervical spine. IMPRESSION: Normal CT angiogram of the head and neck. Please note that all CT scans at this facility use dose modulation, iterative reconstruction, and/or weight-based dosing when appropriate to reduce radiation dose to as low as reasonably achievable. Dictated by Avani Adam MD @ 02/09/2025 9:31:45 AM Signed by:?Avani Adam MD @02/09/2025 9:31:45 AM (Electronic Signature)
--- NOTE | 2025-02-09 00:03 | CT_ITS ---
Patient: ERWIN DUARTE Facility:?[facility] Patient ID:?[id number] Site Patient ID:?[id number]. Site :?1980 Study:?CT-Neck Angio Angio ALL IMAGING ON ANGIO HEAD-02/09/2025 12:31:17 AM Ordering Physician:Raji Reardon Final Report: DATE: 02/09/2025 CLINICAL HISTORY: Patient with dizziness. TECHNIQUE: Standard helical CT image acquisition through the head and neck was performed after intravenous contrast bolus enhancement. 2D and 3D MIP images for post- processing were performed and interpreted on an independent workstation and 3D images were permanently archived. COMPARISON: CT same day. FINDINGS: The origins of the great vessels from the aortic arch are patent. The origin of the right vertebral artery is patent. The origin of the left vertebral artery is patent. The common carotid arteries are patent There is no stenosis at the origin of the right internal carotid artery. There is no stenosis at the origin of the left internal carotid artery. The rest of the cervical segments of the internal carotid arteries are patent up to their intracranial segments. The intracranial segments of the internal carotid arteries are patent. The left vertebral artery is dominant. The cervical segments of the vertebral arteries are patent. The intracranial segments of the vertebral arteries are patent. The middle cerebral arteries are normal without aneurysm or proximal occlusion identified. The anterior cerebral arteries are normal without aneurysm or proximal occlusion identified. The anterior communicating artery is well visualized and appears normal. The basilar artery is normal without aneurysm or occlusion. The posterior cerebral arteries are normal without aneurysm or proximal occlusion. There is normal opacification of major intracranial venous structures. The visualized lung apices are unremarkable The thyroid gland is unremarkable. The soft tissues of the neck are unremarkable. There are degenerative changes in the cervical spine. IMPRESSION: Normal CT angiogram of the head and neck. Please note that all CT scans at this facility use dose modulation, iterative reconstruction, and/or weight-based dosing when appropriate to reduce radiation dose to as low as reasonably achievable. Dictated by Avani Adam MD @ 02/09/2025 9:31:13 AM Signed by:?Avani Adam MD @02/09/2025 9:31:13 AM (Electronic Signature)
[2025-02-09 00:07] VITALS: BP 182/97; PULSE 67; RESP 18; O2SAT 100
[2025-02-09 00:15] LABS: Lactate* 1.2 mmol/L (0.5-1.9)
[2025-02-09 00:16] LABS: Hematocrit* 43.7 % (37.0-53.0); Hemoglobin* 15.1 gm/dL (13.5-17.5); Immature Granulocytes Abs Auto 0.02 K/uL (0.00-0.30); Immature Granulocytes Pct Auto 0.3 %; Lymphocytes Absolute Auto 1.83 K/uL (0.90-2.90); Mean Corpuscular HGB Conc 35 gm/dL (32-36); Mean Corpuscular Hemoglobin 34 pg (26-34); Mean Corpuscular Volume 98 fL (80-100); RDW Coefficient of Variation % 11.6 % (11.5-15.5); Red Blood Count* 4.45 m/uL (4.30-5.90); White Blood Count* 7.10 K/uL (4.50-11.00)
[2025-02-09 00:17] LABS: Slide Review Reflex No
[2025-02-09] MEDS: ONDANSETRON 2 MG/ML inj 4 MG IVP (00:31)
[2025-02-09] MEDS: MECLIZINE HCL 25 MG TABLET PO (00:31)
[2025-02-09] MEDS: diazePAM 5 MG/ML inj IV (00:31)
[2025-02-09 00:47] VITALS: BP 146/88; PULSE 71; RESP 11; O2SAT 94
[2025-02-09 00:51] LABS: Albumin* 5.0 g/dL (3.3-5.0); Chloride* 98 mmol/L (96-114)
[2025-02-09 00:52] LABS: Potassium* 4.3 mmol/L (3.6-5.1); Sodium* 139 mmol/L (135-149)
[2025-02-09 00:54] LABS: Blood Urea Nitrogen* 14 mg/dL (5-24); Creatinine* 0.8 mg/dL (0.5-1.5); Est. Creatinine Clearance* 134.15; Estimated Glomerular Filt Rate 111 ml/min
[2025-02-09 00:55] LABS: Alanine Aminotransferase* 76 U/L (4-50); Alkaline Phosphatase* 73 U/L (40-150); Anion Gap 14 mEq/L (7-15); Aspartate Amino Transferase* 43 U/L (12-35); Bilirubin Total* 0.6 mg/dL (0.1-1.5); Calcium* 9.0 mg/dL (8.4-10.6); Carbon Dioxide* 27 mmol/L (20-32); Glucose* 125 mg/dL (60-115); Total Protein* 8.4 g/dL (6.0-8.3)
[2025-02-09 01:02] VITALS: BP 146/94; PULSE 65; RESP 16; TEMP 36.7; O2SAT 98
[2025-02-09 01:17] VITALS: BP 143/92; PULSE 61; RESP 18; O2SAT 99
[2025-02-09 01:26] VITALS: BP 168/108; PULSE 68; RESP 18; TEMP 36.7
== END 2025-02-09 01:27 | disposition home or self-care (01) ==
PROVIDERS: Emergency Provider Family Medicine; PCP Family Medicine
DX: R42 Dizziness and giddiness (principal)
CPT/HCPCS: 36415; 70450; 70496; 70498; 80053; 83605; 83735; 84484; 85025; 86140; 93005; 94761; 96361; 96374; 96375; 99284; 99285; 99291; A9270; J2405; J3360; J7030; Q9967